=== PATIENT | male | born 1950 | race Caucasian/White ===

== ENCOUNTER → 2018-07-11 12:08 | Outpatient (CLI) | payer MEDICARE, BC, SELFPAY ==
[2018-07-11 13:03] LABS: Add Manual Diff / Slide Review NO; Basophils Percent Auto 1.2 % (0-2); Eosinophils Percent Auto 4.4 % (2-4); Hematocrit 44.4 % (41-53); Hemoglobin 15.4 g/dL (13.5-17.5); Lymphocytes Percent Auto 39.9 % (25-40); Mean Corpuscular HGB Conc 34.6 % (30-36); Mean Corpuscular Hemoglobin 31.8 PG (26-34); Mean Corpuscular Volume 91.8 fL (80-100); Neutrophils Absolute Auto 2100 /uL (3000-5900); Neutrophils Percent Auto 44.5 % (50-75); Platelet Count 107 X10^3/uL (150-400); Red Blood Cell Count 4.84 X10^6/uL (4.5-5.9); Red Cell Distribution Width 14.2 % (11.6-14.8); White Blood Cell Count 4.7 X10^3/uL (4.5-11.0)
[2018-07-11 13:42] LABS: Cholesterol 236 mg/dL (140-199); HDL Cholesterol 67 mg/dL (40-60); LDL Cholesterol Calculated 155 mg/dL (<100); Triglycerides 70 mg/dL (35-150)
[2018-07-11 14:47] LABS: TSH w/ Reflex to FT4 1.73 uIU/mL (0.47-4.68)
== END ==
PROVIDERS: Family Provider Family Medicine; PCP Family Medicine; Visit Provider Family Medicine
DX: E78.00 Pure hypercholesterolemia, unspecified (principal); I10 Essential (primary) hypertension
CPT/HCPCS: 36415; 80061; 84443; 85025

== ENCOUNTER → 2018-08-09 12:39 | Outpatient (CLI) | payer MEDICARE, BC, SELFPAY ==
--- NOTE | 2018-08-09 12:42 | DI.US.S_ITS ---
PROCEDURE: US RENAL COMPLETE INDICATIONS: FLANK PAIN TECHNIQUE: Real-time scanning was performed of the kidneys and bladder, with image documentation. COMPARISON: None. FINDINGS: Kidneys: Kidneys are normal in size. Right kidney measures 15.4 cm long; left kidney measures 13.6 cm long. Right renal cortical thickness is 1.9 cm; left renal cortical thickness is 1.5 cm. Renal cortical echotexture is normal. No hydronephrosis or nephrolithiasis. No suspicious solid mass lesions. Bladder: Pre-void bladder volume is 73 mL. Post-void residual is 20 mL. Pre-void images demonstrate no intraluminal masses or stones. On pre-void images, neither ureteral jets are noted with color Doppler interrogation. (Of note, ureteral jets may not be detectable in up to 25% of cases due to insufficient differences in specific gravity between ureteral and bladder urine). Miscellaneous: No free pelvic fluid. IMPRESSION: Normal appearance of the kidneys and no source for bilateral flank pain identified. Dictated by: Mauro Jules [facility] Interpreted: Coretta Barker MD on 08/09/2018 at 13:31 Approved by: Coretta Barker M.D. on 08/09/2018 at 14:46
== END ==
PROVIDERS: PCP Family Medicine; Visit Provider Family Medicine
DX: R10.9 Unspecified abdominal pain (principal)
CPT/HCPCS: 76770

== ENCOUNTER → 2019-07-08 11:10 | Outpatient (CLI) | payer MEDICARE, BC, SELFPAY ==
[2019-07-08 11:30] LABS: Add Manual Diff / Slide Review NO; Basophils Absolute Auto 0 /uL (0-100); Eosinophils Absolute Auto 200 /uL (0-450); Eosinophils Percent Auto 3.1 % (2-4); Hematocrit 47.6 % (41-53); Hemoglobin 16.6 g/dL (13.5-17.5); Lymphocytes Absolute Auto 1700 /uL (1100-4500); Lymphocytes Percent Auto 33.8 % (25-40); Mean Corpuscular Hemoglobin 31.9 PG (26-34); Mean Corpuscular Volume 91.2 fL (80-100); Monocytes Absolute Auto 500 /uL (0-900); Neutrophils Absolute Auto 2600 /uL (1500-7000); Neutrophils Percent Auto 52.1 % (50-75); Platelet Count 132 X10^3/uL (150-400); Red Blood Cell Count 5.22 X10^6/uL (4.5-5.9); Red Cell Distribution Width 13.8 % (11.6-14.8); White Blood Cell Count 4.9 X10^3/uL (4.5-11.0)
[2019-07-08 11:48] LABS: Alanine Aminotransferase 21 IU/L (<50); Albumin 4.5 g/dL (3.5-5.0); Albumin Globulin Ratio 1.6 (1.0-2.8); Alkaline Phosphatase 60 U/L (38-126); Aspartate Aminotransferase 26 IU/L (17-59); Bilirubin Total 1.4 mg/dL (0.2-1.3); Blood Urea Nitrogen 23 mg/dL (9-20); Calcium 9.4 mg/dL (8.4-10.2); Carbon Dioxide 27 mmol/L (22-32); Chloride 103 mmol/L (98-107); Cholesterol 217 mg/dL (140-199); Estimated Glomerular Filt Rate > 60.0 mL/min (>60); Globulin 2.8 g/dL (1.7-4.1); Glucose 113 mg/dL (80-110); HDL Cholesterol 48 mg/dL (40-60); HEMOLYSIS < 15 (0-50); LDL Cholesterol Calculated 155 mg/dL (<100); Potassium 4.3 mmol/L (3.4-5.1); Sodium 140 mmol/L (137-145); Total Protein 7.3 g/dL (6.3-8.2); Triglycerides 71 mg/dL (35-150)
[2019-07-08 12:18] LABS: Prostate Specific Antigen Scrn 0.701 ng/mL (0.1-4.0); TSH w/ Reflex to FT4 1.95 uIU/mL (0.47-4.68)
== END ==
PROVIDERS: PCP Family Medicine; Visit Provider Family Medicine
DX: Z12.5 Encounter for screening for malignant neoplasm of prostate (principal); E78.00 Pure hypercholesterolemia, unspecified; I10 Essential (primary) hypertension
CPT/HCPCS: 36415; 80053; 80061; 84443; 85025; G0103

== ENCOUNTER 2020-03-11 12:17 | Emergency (ER) | payer MEDICARE, BC, SELFPAY ==
[2020-03-11] VITALS (7 sets, daily range): BP systolic 136–165; BP diastolic 86–103; PULSE 82–97; RESP 17–25; TEMP 36.8; O2SAT 98–99; BMI 37.5
--- NOTE | 2020-03-11 12:29 | DI.RAD.S_ITS ---
PROCEDURE: XR CHEST 1V INDICATIONS: chest pain TECHNIQUE: One view of the chest was acquired. COMPARISON: [facility], , CHEST 2 VIEW, 02/10/2016, 16:19. FINDINGS: Surgical changes and devices: None. Lungs and pleura: The pulmonary vascular markings are slightly increased. No focal consolidation, effusion, or pneumothorax is evident. Mediastinum: Mediastinal contours appear normal. Heart size is normal. There is aortic atherosclerosis. Bones and chest wall: No suspicious bony lesions. Overlying soft tissues appear unremarkable. IMPRESSION: Possible mild vascular congestion. No definite pneumonia. Dictated by: Miguel Alfaro M.D. on 03/11/2020 at 12:01 Approved by: Miguel Alfaro M.D. on 03/11/2020 at 12:01
--- NOTE | 2020-03-11 12:48 | PC.NURSE ---
Patient states he was in [place] yesterday and was feeling some seasonal allergies and fatigue. 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 Which resolved. Today continues to feel very fatigued and ongoing pressure in his chest.
--- NOTE | 2020-03-11 12:49 | ED.CHESTPAIN ---
HPI - Chest Pain General Chief Complaint: Chest Pain Stated Complaint: Tightness In Chest, Fatigue Time Seen by Provider: 03/11/20 12:39 Source: patient Mode of arrival: Ambulatory Limitations: no limitations History of Present Illness HPI narrative: Patient is a 70-year-old male who presents with chest discomfort ongoing since yesterday morning. 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 He says he is having some mild shortness of breath but not any worse with exertion he denies any orthopnea he does have lower extremity edema but he says it is not any worse than normal. He is noted to be in atrial fibrillation. MD complaint: chest pain Onset (ago): day(s) (1) Duration: constant Pain location: substernal Pain radiation: none Relieving factors: nothing Exacerbating factors: nothing Related Data Previous Rx's Medication Instructions Recorded hydrochlorothiazide 25 mg tablet 25 mg PO QDAY #90 tab 07/27/18 albuterol sulfate 90 mcg/actuation 1 puff INHALATION Q4-6H PRN #8.5 11/16/18 aerosol inhaler gram zolpidem 5 mg tablet 5 mg PO HS PRN #20 tab 11/16/18 lisinopril 40 mg tablet 40 mg PO QDAY #90 tab 07/10/19 pantoprazole 40 mg tablet,delayed 40 mg PO QDAY #90 ect 08/10/19 release amlodipine 10 mg tablet 10 mg PO DAILY #90 tab 09/19/19 cyclobenzaprine 5 mg tablet 5 mg PO TID PRN #60 tab 09/26/19 dexamethasone 4 mg tablet 4 mg PO TID #6 tab 09/26/19 tadalafil 20 mg tablet 20 mg PO Q3DAYS #24 tab 11/03/19 celecoxib 200 mg capsule 200 mg PO BID #60 cap 12/14/19 apixaban [Eliquis] 5 mg PO BID #60 tab 03/11/20 metoprolol succinate 25 mg PO DAILY #30 each 03/11/20 Allergies Allergy/AdvReac Type Severity Reaction Status Date / Time No Known Drug Allergies Allergy Verified 03/11/20 12:26 Review of Systems Review of Systems Narrative: GENERAL: Denies chills, fatigue, malaise, fever, sweats, travel HEENT: Denies sinus pain, ear pain, sore throat, difficulty swallowing, neck pain RESPIRATORY: Denies dyspnea, cough, wheezing, hemoptysis, sputum. CARDIOVASCULAR: See HPI GASTROINTESTINAL: Denies nausea, vomiting, abdominal pain, diarrhea, constipation, melena. : Denies dysuria, frequency, incontinence, hematuria, urinary retention, flank pain. MUSCULOSKELETAL: Denies weakness, joint pain, or bony pain SKIN: No rash, no erythema, no pruritus NEUROLOGIC: Denies weakness, dizziness, headache, numbness, change in speech, confusion PSYCHIATRIC: No concerning psychosocial issues. 12 point review of systems is negative except for those stated above and HPI Patient History Medical History Ankle pain (Chronic ~2012) Asthma (Chronic) Ward's syndrome (Chronic ~1999) Chicken pox (Resolved) GERD (gastroesophageal reflux disease) (Chronic) Gout (Chronic ~2013) Hypertension (Chronic) Measles (Resolved) Mumps (Resolved) Skin cancer (Resolved ~2001) Sleep apnea (Chronic ~2007) Urinary frequency (Chronic) Vision disorder (Chronic) Surgical History Acromial fracture (Resolved) Anesthesia (Resolved) History of lumbosacral spine surgery (Resolved ~2012) History of spinal fusion (~05/2013) History of throat surgery (Resolved ~1991) History of tonsillectomy (~1953) History of vasectomy (~1983) Shoulder pain (Resolved ~2005) Family History Brother Age: 68 Back pain Brother Age: 65 Back pain Sister Age: 77 Obese Sister Age: 76 Overweight Social History marital status: Smoking Status: Former smoker alcohol intake: current (1-2 A DAY ) substance use type: does not use Smoking Status: Former smoker alcohol intake frequency: 3 or more drinks per day Substance Use Type: does not use Exam Initial Vital Signs Initial Vital Signs: Vital Signs Temperature 98.3 F 03/11/20 12:20 Pulse Rate 93 H 03/11/20 12:20 Respiratory Rate 22 03/11/20 12:20 Blood Pressure 165/103 H 03/11/20 12:20 Pulse Oximetry 99 03/11/20 12:20 GENERAL: Alert well-appearing male HEENT: Head atraumatic,EOMI, pupils reactive, face symmetric CARDIOVASCULAR: Irregularly irregular RESPIRATORY: Breath sounds equal bilaterally, no wheezes rales or rhonchi. ABDOMEN: Soft, nontender. Normoactive bowel sounds all 4 quadrants. No guarding or rebound. EXTREMITIES: Normal range of motion, no clubbin. +1 pitting edema. Neurovascularly intact NEUROLOGICAL: Alert and oriented x4.Normal gait and speech. SKIN: Warm, dry, no laceration, no petechiae, no rashes or lesions. Scores CHADS-VASc Congestive heart failure: no Hypertension: yes Age 75 years or older: no Diabetes mellitus: no Stroke, TIA, or TE: no Vascular disease: no Age 65 to 74 years: yes Sex category (female): Male CHADS-VASc Score: 2 Course Orders Ordered: ED Orders 03/11/20 12:29 XR chest 1V Stat EKG-12 Lead Stat 03/11/20 12:35 Complete Blood Count AUTO DIFF Stat Comprehensive Metabolic Panel Stat Lipase Stat Partial Thromboplastin Time Stat Prothrombin Time INR Stat Troponin & CK Cardiac Panel Stat Vital Signs Vital signs: Vital Signs - 8 hr 03/11/20 12:20 03/11/20 12:23 03/11/20 12:25 Temperature 98.3 F Pulse Rate 93 H 95 H 97 H Respiratory Rate 22 22 23 Blood Pressure 165/103 H 165/103 H Pulse Oximetry 99 98 99 03/11/20 12:30 03/11/20 13:00 03/11/20 13:30 Temperature Pulse Rate 94 H 91 H 90 Respiratory Rate 25 H 21 Blood Pressure 157/95 H 143/86 H 136/99 H Pulse Oximetry 99 98 99 03/11/20 14:00 Temperature Pulse Rate 82 Respiratory Rate 17 Blood Pressure 142/91 H Pulse Oximetry 98 MDM - Chest Pain Lab Data Attestation: I reviewed the patient's lab results. Result diagrams: 03/11/20 12:35 03/11/20 12:35 Labs: Lab Results 03/11/20 03/11/20 03/11/20 Range/Units 12:35 12:35 12:35 WBC 6.1 (4.5-11.0) X10^3/uL RBC 4.80 (4.5-5.9) X10^6/uL Hgb 15.3 (13.5-17.5) g/dL Hct 44.0 (41-53) % MCV 91.7 (80-100) fL MCH 31.9 (26-34) PG MCHC 34.7 (30-36) % RDW 14.4 (11.6-14.8) % Plt Count 124 L (150-400) X10^3/uL Neut % (Auto) 48.9 L (50-75) % Lymph % (Auto) 36.4 (25-40) % Collin % (Auto) 8.6 (3-14) % Eos % (Auto) 4.4 H (2-4) % Baso % (Auto) 1.7 (0-2) % Neut # (Auto) 3000 (6030-0430) /uL Lymph # (Auto) 2200 (8710-4196) /uL Collin # (Auto) 500 (0-900) /uL Eos # (Auto) 300 (0-450) /uL Baso # (Auto) 100 (0-100) /uL PT 11.8 (10.1-12.7) SECONDS INR 1.0 (0.9-1.3) APTT 31 (26.4-36.2) SECONDS Sodium 139 (137-145) mmol/L Potassium 3.7 (3.4-5.1) mmol/L Chloride 108 H (98-107) mmol/L Carbon Dioxide 24 (22-32) mmol/L BUN 18 (9-20) mg/dL Creatinine 0.83 (0.66-1.25) mg/dL Estimated GFR > 60.0 (>60) mL/min BUN/Creatinine Ratio 21.7 (6-22) Glucose 114 H (80-110) mg/dL Calcium 8.8 (8.4-10.2) mg/dL Total Bilirubin 1.2 (0.2-1.3) mg/dL AST 38 (17-59) IU/L ALT 31 (<50) IU/L Alkaline Phosphatase 62 (38-126) U/L Total Creatine Kinase 204 H (55-170) U/L CK-MB (CK-2) 5.29 H (<2.37) ng/mL CK-MB (CK-2) Rel Index 2.6 (1.5-5.0) % Troponin I < 0.012 (0.01-0.034) ng/mL Total Protein 6.5 (6.3-8.2) g/dL Albumin 4.0 (3.5-5.0) g/dL Globulin 2.5 (1.7-4.1) g/dL Albumin/Globulin Ratio 1.6 (1.0-2.8) Lipase 78 (23-300) U/L Imaging Data Chest x-ray: Radiologist's Impression: PROCEDURE: XR CHEST 1V INDICATIONS: chest pain TECHNIQUE: One view of the chest was acquired. COMPARISON: [facility], CHEST 2 VIEW, 02/10/2016, 16:19. FINDINGS: Surgical changes and devices: None. Lungs and pleura: The pulmonary vascular markings are slightly increased. No focal consolidation, effusion, or pneumothorax is evident. Mediastinum: Mediastinal contours appear normal. Heart size is normal. There is aortic atherosclerosis. Bones and chest wall: No suspicious bony lesions. Overlying soft tissues appear unremarkable. IMPRESSION: Possible mild vascular congestion. No definite pneumonia. Dictated by: Miguel Alfaro M.D. on 03/11/2020 at 12:01 Approved by: Miguel Alfaro M.D. on 03/11/2020 at 12:01 ECG Data Attestation: I personally reviewed and interpreted this ECG as follows: Prior ECG tracings: available for review Interpretation: Atrial fibrillation rate [address] changes priors to compare MDM Narrative Medical decision making narrative: The patient is within 48 hours and is in the window of cardioversion however I discussed with patient and his primary care physician Dr. man regards to cardioversion versus conservative treatment at this time patient opts for conservative treatment. Dr. Man request metoprolol and Eliquis. He is currently rate controlled I have discussed risks with any anticoagulation and given him options for anticoagulation he at this time he agrees to Eliquis. I discussed all findings with the patient, Education has been performed regarding treatment plan, diagnosis, warning signs and symptoms and all concerns have been addressed. Verbally agree with and understood all of the above. Discharge Plan Departure Patient Disposition: Home Clinical Impression: Atrial fibrillation Qualifiers: Atrial fibrillation type: unspecified Qualified Code(s): I48.91 - Unspecified atrial fibrillation Discharge Date/Time: 03/11/20 14:37 Instructions: DI for Atrial Fibrillation Activity Restrictions/Additional Instructions: *You have been diagnosed with atrial fibrillation *What to do: You will need more studies and test done with Dr. Luis Ford does put you at risk for bleeding if you should fall and hit your head or experience bloody stool you need to come to ED for evaluation immediately. You will bleed easier, you will need to apply pressure for longer to cuts and nose bleeds. You *Continue to take medications as directed--> SENT TO [facility] Metoprolol 25 mg twice a day Eliquis 5 mg twice a day *Follow up with your primary care provider in 2-3 days *Return to ER if you should have increased chest pain heart palpitations shortness of breath or any new, worsening or concerning symptoms Prescriptions: New metoprolol succinate 25 mg capsule,sprinkle,ER 24hr 25 mg PO DAILY Qty: 30 RF: 0 Eliquis 5 mg tablet 5 mg PO BID Qty: 60 RF: 0 No Action dexamethasone 4 mg tablet 4 mg PO TID Qty: 6 RF: 0 cyclobenzaprine 5 mg tablet 5 mg PO TID PRN (Reason: muscle spasm) Qty: 60 RF: 0 zolpidem 5 mg tablet 5 mg PO HS PRN (Reason: insomnia) Qty: 20 RF: 0 albuterol sulfate 90 mcg/actuation HFA aerosol inhaler 1 puff INHALATION Q4-6H PRN (Reason: shortness of breath or wheezing) Qty: 8.5 RF: 1 lisinopril 40 mg tablet 40 mg PO QDAY Qty: 90 RF: 3 pantoprazole [Protonix] 40 mg tablet,delayed release (DR/EC) 40 mg PO QDAY Qty: 90 RF: 3 amlodipine 10 mg tablet 10 mg PO DAILY Qty: 90 RF: 3 tadalafil [Cialis] 20 mg tablet 20 mg PO Q3DAYS Qty: 24 RF: 6 celecoxib [Celebrex] 200 mg capsule 200 mg PO BID Qty: 60 RF: 0 hydrochlorothiazide 25 mg tablet 25 mg PO QDAY Qty: 90 RF: 3 Referrals: Jurgen Man MD [Primary Care Provider] -
[2020-03-11 12:50] LABS: Add Manual Diff / Slide Review NO; Basophils Absolute Auto 100 /uL (0-100); Basophils Percent Auto 1.7 % (0-2); Eosinophils Absolute Auto 300 /uL (0-450); Eosinophils Percent Auto 4.4 % (2-4); Hemoglobin 15.3 g/dL (13.5-17.5); Lymphocytes Absolute Auto 2200 /uL (1100-4500); Lymphocytes Percent Auto 36.4 % (25-40); Mean Corpuscular HGB Conc 34.7 % (30-36); Mean Corpuscular Hemoglobin 31.9 PG (26-34); Mean Corpuscular Volume 91.7 fL (80-100); Monocytes Absolute Auto 500 /uL (0-900); Monocytes Percent Auto 8.6 % (3-14); Neutrophils Absolute Auto 3000 /uL (1500-7000); Neutrophils Percent Auto 48.9 % (50-75); Platelet Count 124 X10^3/uL (150-400); Red Cell Distribution Width 14.4 % (11.6-14.8); White Blood Cell Count 6.1 X10^3/uL (4.5-11.0)
[2020-03-11 12:51] LABS: Prothrombin Time 11.8 SECONDS (10.1-12.7)
[2020-03-11 12:53] LABS: PTT Partial Thromboplastin Tim 31 SECONDS (26.4-36.2)
[2020-03-11 13:04] LABS: Alanine Aminotransferase 31 IU/L (<50); Albumin Globulin Ratio 1.6 (1.0-2.8); Alkaline Phosphatase 62 U/L (38-126); Aspartate Aminotransferase 38 IU/L (17-59); BUN Creatinine Ratio 21.7 (6-22); Bilirubin Total 1.2 mg/dL (0.2-1.3); Blood Urea Nitrogen 18 mg/dL (9-20); Calcium 8.8 mg/dL (8.4-10.2); Carbon Dioxide 24 mmol/L (22-32); Chloride 108 mmol/L (98-107); Creatine Kinase 204 U/L (55-170); Estimated Glomerular Filt Rate > 60.0 mL/min (>60); Globulin 2.5 g/dL (1.7-4.1); Glucose 114 mg/dL (80-110); Lipase 78 U/L (23-300); Potassium 3.7 mmol/L (3.4-5.1); Sodium 139 mmol/L (137-145); Total Protein 6.5 g/dL (6.3-8.2)
[2020-03-11 13:16] LABS: Troponin I < 0.012 ng/mL (0.01-0.034)
[2020-03-11 13:20] LABS: CKMB % Relative Index 2.6 % (1.5-5.0); Creatine Kinase MB 5.29 ng/mL (<2.37); HEMOLYSIS < 15 (0-50)
== END 2020-03-11 14:37 | disposition home or self-care (01) ==
PROVIDERS: Emergency Provider Emergency Medicine; PCP Family Medicine
DX: I48.91 Unspecified atrial fibrillation (principal)
CPT/HCPCS: 36415; 71045; 80053; 82550; 82553; 83690; 84484; 85025; 85610; 85730; 93005; 93010; 99284

== ENCOUNTER → 2020-03-14 09:57 | Outpatient (CLI) | payer MEDICARE, BC, SELFPAY ==
[2020-03-14 11:49] LABS: NT-proBNP (BNP-Adult 18+) 925 pg/mL (<125)
== END ==
PROVIDERS: PCP Family Medicine; Referring Provider Family Medicine; Visit Provider Family Medicine
DX: I48.91 Unspecified atrial fibrillation (principal)
CPT/HCPCS: 36415; 83735; 83880; 84443

== ENCOUNTER → 2020-03-17 11:21 | Outpatient (CLI) | payer MEDICARE, BC, SELFPAY ==
[2020-03-18 13:58] LABS: COVID19 Sendout Not Detected (Not Detect)
== END ==
PROVIDERS: PCP Family Medicine; Visit Provider Physician Assistant
DX: Z01.812 Encounter for preprocedural laboratory examination (principal)
CPT/HCPCS: 87635

== ENCOUNTER → 2020-03-20 09:51 | Outpatient (CLI) | payer MEDICARE, BC, SELFPAY ==
--- NOTE | 2020-03-21 14:46 | P.PCN_ITS ---
Cardiac Stress Test Report Referral & Results Date Patient Seen: 03/21/20 Time Patient Seen: 14:30 Requesting provider: Jurgen Smith Indication: New a-fib Rest ECG: Normal sinus rhythm. Patient is not in atrial fibrillation. Procedure Note: Today following both written and verbal informed consent the patient was exercised according to a standard Chago protocol patient went for a total of 6 minutes achieving a maximum heart rate of 130 maximum systolic blood pressure of 210. This is approximately 7 METs. Exercise was terminated at this point because of fatigue. Patient was also given Cardiolite through a previously started Hep-Lock IV by the nuclear medicine technologist approximately 1 minute prior to the cessation of exercise. Normal hemodynamic response to exercise. No signs or symptoms of angina. No ST deviations. Sinus rhythm at baseline. Frequent PVCs at peak exercise. Impaired exercise capacity (BRIGETTE +10% on active scale). Impression: Low probability for ischemia. Will await perfusion imaging. Please note: Actual ECG tracings can be found in the PACS system.
--- NOTE | 2020-03-21 21:06 | DI.NM.S_ITS ---
DATE OF SERVICE: 03/20/2020 PROCEDURE: Exercise perfusion study. INDICATIONS: Atrial fibrillation. RADIOPHARMACEUTICAL: 25.5 millicurie technetium-99m Myoview IV was injected at stress and 25.7 millicurie technetium-99m Myoview IV was injected at rest. CARDIAC STRESS: The patient underwent exercise perfusion study under the supervision of an attending staff. He walked on Chago protocol. The patient walked on Chago protocol for around 6 minutes and 04 seconds, achieved 87 percent of target heart rate, 7 METS of workload and functional aerobic impairment positive 10 percent. He felt fatigued. Baseline blood pressure 142/90. Peak blood pressure 210/118, suggestive of hypertensive blood pressure response. Baseline EKG revealed sinus rhythm with poor R-wave progression. During stress, there were no convincing ischemic changes. There were some PACs as well as isolated PVCs at peak exercise. There was some bigeminy pattern. No ventricular tachycardia. RAW DATA: There is increased subdiaphragmatic activity. The patient's weight is 332 pounds. GATED STUDY: Stress LV ejection fraction 70 percent without any obvious wall motion abnormalities. Resting end-diastolic volume 214 mL, suggestive of dilated left ventricle. TID ratio 1.07, which is within normal limits. Lung/heart ratio 0.49, which is abnormal. MYOCARDIAL PERFUSION: Stress supine, resting supine and stress prone images were compared to each other. Stress supine and resting supine images revealed moderate-size ,mildly decreased perfusion of inferior wall, extending into the inferior apex which got significantly improved during prone images. Prone images remained have minimally decreased perfusion of basal inferior wall. CONCLUSION: 1. No obvious reversible ischemia. 2. Stress supine and resting supine images revealed moderate-size, mildly decreased perfusion of inferior wall and inferior apex, which got significantly improved during prone images. There was minimally decreased perfusion of basal inferior wall on prone images. This is likely due to diaphragmatic tissue attenuation artifact and some persistent tissue attenuation artifact. The patient's weight is 332 pounds. As far as perfusion scan is concerned, this is a low-risk myocardial perfusion scan. However, the lung/heart ratio is abnormal. Consider 2D echo to make sure there is no diastolic dysfunction or valvular pathology. Fideila Garner Rj doc#: [id number]/job#: [id number] dd: 03/21/2020 17:21:00 dt: 03/21/2020 20:40:00 DICTATING MD/COPIES TO: Noé Lantigua MD; Celeste Flower M.D. COPIES MNE: JEROME;
== END ==
PROVIDERS: PCP Family Medicine; Referring Provider Family Medicine; Visit Provider Family Medicine
DX: I48.91 Unspecified atrial fibrillation (principal)
CPT/HCPCS: 78452; 93016; 93017; 93018; A9502

== ENCOUNTER → 2020-05-07 09:25 | Outpatient (CLI) | payer MEDICARE, BC, SELFPAY ==
[2020-05-07 11:27] LABS: Hemoglobin A1C% w Est Avg Glu 5.9 % (4.0-6.0)
== END ==
PROVIDERS: PCP Family Medicine; Referring Provider Family Medicine; Visit Provider Family Medicine
DX: E78.00 Pure hypercholesterolemia, unspecified (principal); I10 Essential (primary) hypertension; Z13.1 Encounter for screening for diabetes mellitus
CPT/HCPCS: 36415; 83036

== ENCOUNTER → 2020-05-15 14:48 | Outpatient (CLI) | payer MEDICARE, BC, SELFPAY ==
[2020-05-15 17:32] LABS: Urine N gonorrhoeae NOT DETECTED
[2020-05-15 18:27] LABS: Urine Chlamydia NOT DETECTED
[2020-05-16 09:31] LABS: HBsAg Screen Negative (Negative); Hepatitis A Antibody IgM Negative (Negative); Hepatitis B Core Antibody IgM Negative (Negative); Hepatitis C Antibody <0.1 s/co ratio (0.0-0.9)
[2020-05-16 16:42] LABS: HIV 1 & 2 Ab/Ag 4th Gen Combo NEGATIVE (NEGATIVE)
== END ==
PROVIDERS: PCP Family Medicine; Referring Provider Family Medicine; Visit Provider Family Medicine
DX: Z11.3 Encounter for screening for infections with a predominantly sexual mode of transmission (principal)
CPT/HCPCS: 36415; 80074; 87389; 87491; 87591

== ENCOUNTER → 2020-09-11 09:41 | Outpatient (CLI) | payer MEDICARE, BC, SELFPAY ==
[2020-09-11 12:02] LABS: COVID19 -Nasal RAPID Negative (Negative)
== END ==
PROVIDERS: PCP Family Medicine; Visit Provider Family Medicine
DX: R10.9 Unspecified abdominal pain (principal); R11.0 Nausea; Z20.822 Contact with and (suspected) exposure to COVID-19
CPT/HCPCS: 87635

== ENCOUNTER → 2020-09-26 09:02 | Outpatient (CLI) | payer MEDICARE, BC, SELFPAY ==
[2020-09-26] MEDS: COVID-19 VACC #1, MRNA(MOD) 100 MCG/0.5 ML VIAL IM (09:06)
== END ==
PROVIDERS: PCP Family Medicine; Visit Provider Internal Medicine
DX: Z23 Encounter for immunization (principal)
CPT/HCPCS: 0011A; 91301

== ENCOUNTER → 2020-10-23 08:17 | Outpatient (CLI) | payer MEDICARE, BC, SELFPAY ==
[2020-10-23] MEDS: COVID-19 VACC #2, MRNA(MOD) 100 MCG/0.5 ML VIAL IM (08:23)
== END ==
PROVIDERS: PCP Family Medicine; Visit Provider Internal Medicine
DX: Z23 Encounter for immunization (principal)
CPT/HCPCS: 0012A; 91301

== ENCOUNTER 2021-01-06 07:28 | Emergency (ER) | payer MEDICARE, BC, SELFPAY ==
[2021-01-06 07:38] VITALS: BP 130/68; PULSE 70; RESP 14; TEMP 36.6; O2SAT 96
--- NOTE | 2021-01-06 07:44 | ED.BACK ---
HPI - Back Pain/Injury General Chief Complaint: Back Pain/Injury Stated Complaint: pinched nerve in back Time Seen by Provider: 01/06/21 07:30 Source: patient Limitations: no limitations History of Present Illness HPI Narrative: 70-year-old male former smoker with history of prior back pain and subsequent surgery, hypertension, AFib on Eliquis presents with severe lower back pain and radiation down both legs to the back of his knees. He states it feels electrical, sharp and stabbing and not unlike prior back issues. He states it started on Wednesday and without any obvious or significant injury. He denies any numbness, tingling or weakness. He has no footdrop. He denies any difficulty with control of bowel or bladder. He has had no fever or chills and denies any history of IV drug abuse. His pain is worse with motion and improves with rest. MD Complaint: back pain Onset (ago): day(s) Duration: constant Similar Symptoms Previously: Yes Location: lumbar spine Severity: severe Quality: burning and sharp Radiation: left leg and right leg Relieving factors: none Exacerbating factors: walking Associated symptoms: denies other symptoms Related Data Previous Rx's Medication Instructions Recorded albuterol sulfate 90 mcg/actuation 1 puff INHALATION Q4-6H PRN #8.5 11/16/18 aerosol inhaler gram zolpidem 5 mg tablet 5 mg PO HS PRN #20 tab 11/16/18 amlodipine 10 mg tablet 10 mg PO DAILY #90 tab 09/19/19 tadalafil 20 mg tablet 20 mg PO Q3DAYS #24 tab 11/03/19 metoprolol succinate 25 mg PO DAILY #30 each 03/11/20 lisinopril 40 mg tablet 40 mg PO QDAY #90 tab 07/08/20 pantoprazole 40 mg tablet,delayed 40 mg PO QDAY #90 ect 10/18/20 release apixaban 5 mg tablet 5 mg PO BID #20 tab 12/18/20 cyclobenzaprine 10 mg PO TID PRN #14 tab 01/06/21 gabapentin 300 mg PO BEDTIME #14 cap 01/06/21 methylprednisolone [Medrol (Elian)] See Rx Instructions .ROUTE 01/06/21 .COMPLEX #21 ea oxycodone 5 mg PO Q4-6H PRN #10 tab 01/06/21 Allergies Allergy/AdvReac Type Severity Reaction Status Date / Time No Known Drug Allergies Allergy Verified 07/06/20 14:57 Review of Systems Constitutional Constitutional: Denies chills, Denies fatigue, Denies fever(s), Denies frequent falls, Denies lethargy and Denies weakness Eyes Eyes: Denies change in vision, Denies eye discharge, Denies irritation and Denies loss of vision ENT Ears, Nose, Mouth, and Throat: Denies change in voice, Denies dizziness, Denies neck pain, Denies sore throat and Denies throat swelling Cardiovascular Cardiovascular: Denies chest pain, Denies irregular heart rhythm, Denies lightheadedness, Denies palpitations, Denies dyspnea, Denies dyspnea on exertion and Denies orthopnea Respiratory Respiratory: Denies cough, Denies dyspnea, Denies dyspnea on exertion and Denies wheezing Gastrointestinal Gastrointestinal: Denies abdominal pain, Denies change in bowel habits, Denies diarrhea, Denies nausea and Denies vomiting Musculoskeletal Musculoskeletal: Reports back pain, Denies neck pain and Denies numbness Integumentary/Breasts Skin/Breast: Denies pruritus, Denies erythema, Denies rash and Denies wounds Neurologic Neurologic: Denies behavioral changes, Denies confusion, Denies dizziness, Denies frequent falls, Denies loss of vision, Denies numbness and Denies weakness Psychiatric Psychiatric: Denies anxiety, Denies behavioral changes, Denies confusion, Denies depression, Denies homicidal ideation and Denies suicidal ideation Endocrine Endocrine: Denies fatigue, Denies flushing and Denies palpitations Hematologic/Lymphatic Hematologic/Lymphatic: Denies easy bruising Allergic/Immunologic Allergic/Immunologic: Denies urticaria, Denies throat swelling and Denies wheezing Patient History Medical History (Updated 01/06/21 @ 09:00 by Kumar Payne DO) Ankle pain (~2012) Asthma Ward's syndrome (~1999) Chicken pox GERD (gastroesophageal reflux disease) Gout (~2013) Hypertension Measles Mumps Skin cancer (~2001) Sleep apnea (~2007) Urinary frequency Vision disorder Surgical History Acromial fracture Anesthesia History of lumbosacral spine surgery (~2012) History of spinal fusion (~05/2013) History of throat surgery (~1991) History of tonsillectomy (~1953) History of vasectomy (~1983) Shoulder pain (~2005) Family History Brother Age: 69 Back pain Brother Age: 66 Back pain Sister Age: 78 Obese Sister Age: 77 Overweight Social History marital status: Smoking Status: Former smoker alcohol intake: current (1-2 A DAY ) substance use type: does not use Smoking Status: Former smoker alcohol intake frequency: 3 or more drinks per day Substance Use Type: does not use Exam Narrative Exam Narrative: GENERAL: [70] year old patient appears stated age. Well-nourished, well-developed patient, in mild distress. HEAD: Atraumatic. Normocephalic. EYES: Pupils equal round and reactive. Extraocular motions intact. No scleral icterus. No injection or drainage. ENT: Nose without bleeding, purulent drainage. Throat without erythema, tonsillar hypertrophy or exudate. Airway patent. NECK: Trachea midline. Non tender CARDIOVASCULAR: Regular rate and rhythm without murmurs, gallops, or rubs. RESPIRATORY: Clear to auscultation. Breath sounds equal bilaterally. No wheezes, rales, or rhonchi. GASTROINTESTINAL: Abdomen soft, non-tender, nondistended. EXTREMITIES: No edema or joint tenderness. BACK: rounding machine tender but free of any obvious external abnormalities. Patient exam notes decreased range of motion and muscle spasm, but no CVA tenderness, or vertebral point tenderness. There are no symptoms of cauda equina such as saddle anesthesia, and decreased reflexes, decreased sensation or strength. NEURO: AOx3. SKIN: No rash or erythema of visible areas Initial Vital Signs Initial Vital Signs: Vital Signs Temperature 97.8 F 01/06/21 07:38 Pulse Rate 70 01/06/21 07:38 Respiratory Rate 14 01/06/21 07:38 Blood Pressure 130/68 01/06/21 07:38 Pulse Oximetry 96 01/06/21 07:38 Course Orders Ordered: ED Orders 01/06/21 07:53 Basic Metabolic Panel Stat Complete Blood Count AUTO DIFF Stat Prothrombin Time INR Stat 01/06/21 08:27 CT lumbar spine w con Stat Discontinued Medications Gabapentin (Gabapentin 300 Mg Capsule) 300 mg PO NOW ONE Stop: 01/06/21 07:44 Last Admin: 01/06/21 08:04 Dose: 300 mg Documented by: AUGUSTINE Ketorolac Tromethamine (Ketorolac 30 Mg/Ml Vial) 30 mg IM NOW ONE Stop: 01/06/21 07:44 Last Admin: 01/06/21 09:03 Dose: Not Given Documented by: REENA Ketorolac Tromethamine (Ketorolac 30 Mg/Ml Vial) 15 mg IV NOW ONE Stop: 01/06/21 07:48 Last Admin: 01/06/21 08:04 Dose: 15 mg Documented by: AUGUSTINE Methylprednisolone (Methylprednisolone 125 Mg/2 Ml Vial) 125 mg IV NOW ONE Stop: 01/06/21 07:48 Last Admin: 01/06/21 08:04 Dose: 125 mg Documented by: AUGUSTINE Prednisone (Prednisone 20 Mg Tablet) 40 mg PO NOW ONE Stop: 01/06/21 07:44 Last Admin: 01/06/21 09:03 Dose: Not Given Documented by: REENA Vital Signs Vital signs: Vital Signs - 8 hr 01/06/21 07:38 01/06/21 09:21 Temperature 97.8 F Pulse Rate 70 87 Respiratory Rate 14 15 Blood Pressure 130/68 113/58 L Pulse Oximetry 96 98 MDM - Back Pain/Injury Lab Data Result diagrams: 01/06/21 07:53 01/06/21 07:53 Labs: Lab Results 01/06/21 01/06/21 01/06/21 Range/Units 07:53 07:53 07:53 WBC 5.9 (4.5-11.0) X10^3/uL RBC 4.71 (4.5-5.9) X10^6/uL Hgb 15.1 (13.5-17.5) g/dL Hct 43.6 (41-53) % MCV 92.7 (80-100) fL MCH 32.0 (26-34) PG MCHC 34.5 (30-36) % RDW 14.1 (11.6-14.8) % Plt Count 123 L (150-400) X10^3/uL Neut % (Auto) 56.3 (50-75) % Lymph % (Auto) 31.2 (25-40) % [place] % (Auto) 8.0 (3-14) % Eos % (Auto) 3.4 (2-4) % Baso % (Auto) 1.1 (0-2) % Neut # (Auto) 3300 (6578-1142) /uL Lymph # (Auto) 1800 (3265-6280) /uL [place] # (Auto) 500 (0-900) /uL Eos # (Auto) 200 (0-450) /uL Baso # (Auto) 100 (0-100) /uL PT 13.6 H (10.1-12.7) SECONDS INR 1.2 (0.9-1.3) Sodium 141 (137-145) mmol/L Potassium 4.1 (3.4-5.1) mmol/L Chloride 106 (98-107) mmol/L Carbon Dioxide 25 (22-32) mmol/L BUN 26 H (9-20) mg/dL Creatinine 0.95 (0.66-1.25) mg/dL Estimated GFR > 60.0 (>60) mL/min BUN/Creatinine Ratio 27.4 H (6-22) Glucose 120 H (80-110) mg/dL Calcium 9.1 (8.4-10.2) mg/dL Imaging Data LSpine CT w/contrast: Radiologist's Impression: Chart Viewer Diagnostics DATE TYPE STATUS REF RANGE/AUTHOR Hx Today 08:27 Eros Brown 03/21/20 21:06 Noé Lantigua 03/21/20 21:06 Noé Lantigua 03/12/20 14:43 Echocardiogram Complete 03/11/20 12:29 Miguel Alfaro 08/09/18 12:42 Coretta BarkerMamadou arriaga 70, M0 1950 [facility], [facility] ED R04 Back Pain/Injury Search Chart No Data to Display Total Pending Discharge ONSET 06/11/11 06/11/11 06/17/17 06/17/17 Today 07:38 Mamadou Garner 70 M [address] [id number] Scan ReportSigned Patient: Mamadou GarnerMR#: [id number]: 9Acct:[id number]/Sex: 70 / MDate of Service: 01/06/21Loc: EDAccession Number: [id number] Procedure: CT lumbar spine w con Ordering Provider: Kumar Payne D.O. PROCEDURE: CT LUMBAR SPINE W CON INDICATIONS: lumbar pain, on anticoagulation TECHNIQUE: After the administration of intravenous Isovue contrast, 3 mm thick sections acquired through the levels of interest. Sagittal and coronal reformats were then constructed. For radiation dose reduction, the following was used: automated exposure control. COMPARISON: None. FINDINGS: Image quality: Excellent. Bones: No acute fracture identified. Postsurgical changes related to lower lumbar spinal fixation with paraspinal rods and pedicle screws from L4-S1. Lumbosacral transitional vertebra designated S1 Please see montage image for further clarification of the spinal segmental levels used in this report. Multilevel degenerative endplate sclerosis and spurring. Diffuse facet arthropathy. Partial osseous fusion seen at L4-S1 no definite bridging ossification seen at L5 S1. Severe narrowing and vacuum disc phenomenon present at L3-L4. Hypoplastic S1-S2 disc space is unchanged. There is levocurvature. Posterior decompression seen at L4-L5, and L5-S1. No high-grade bony canal stenosis is seen. On the right, moderate bony foraminal narrowing seen at L4-L5 and mild to moderate bony foraminal narrowing seen at L3-L4. On the left, mild bony foraminal narrowing seen at L3-L4, L5-S1. Soft tissues: No definite increased density seen within the spinal canal although better characterization of the intra canal contents could be performed with MRI as necessary (although metallic hardware artifact is a consideration). Grade 1 retrolisthesis of L3 on L4 IMPRESSION: No acute fracture. Postsurgical and chronic spondylitic changes and facet arthropathy as above. Levoscoliosis. Dictated by: Eros Brown M.D. on 01/06/2021 at 8:56 Approved by: Eros Brown M.D. on 01/06/2021 at 9:06 MDM Narrative Medical decision making narrative: 70-year-old with severe back pain in the absence of injury and radicular symptoms while on anticoagulation, CT ordered and no hematoma noted. Patient shows marked improvement with above-stated therapies. Multiple etiologies of back pain considered including; Epidural abscess, cauda equina, mass occupying lesion, and other considered but thought unlikely given history, physical, labs, imaging, response to therapies. Return precautions given and questions answered to his apparent satisfaction. Discharge Plan Departure Patient Disposition: Home Clinical Impression: Bilateral lumbar radiculopathy Instructions: DI for Lumbar Radiculopathy Activity Restrictions/Additional Instructions: *You have been diagnosed with [acute lumbar pain with radiculopathy] *What to do: *Please continue to take your regular medications as directed. [x ] New medication prescriptions sent to your pharmacy: [ [facility] in [place]] [ ] New medication written as a paper prescription [ ] No new medications given *Please follow up with your primary care provider in 2-3 days, call for an appointment. Let them know you were seen in the Emergency Department and that we ask that you be seen in follow up. We will electronically transmit a record of today's note if your PCP is in our system *If you do not have a primary care provider please contact the [facility] Resource line at [phone]. They will ask some questions about your medical history and help get you set up with a doctor in the community. *Return to Emergency Department if you should have any new, worsening or concerning symptoms, such as [fever greater than 101 F, shaking chills, worsening pain, persistent vomiting, leg weakness, loss of control of bowel/bladder or other bothersome symptoms] You have been prescribed narcotic medications. While on these medications you cannot drive or operate heavy machinery. Additionally you cannot sign legal documents or perform any duties such as this. Many people get constipated on narcotic medications so it would be advisable to discuss stool softeners with the pharmacist when you nut picker your prescription. Please understand that we cannot provide further refills of narcotics or controlled substances through the ED and your pain management will need to be through your Primary Care Provider Prescriptions: New cyclobenzaprine 10 mg tablet 10 mg PO TID PRN (Reason: muscle spasm) Qty: 14 RF: 0 gabapentin 300 mg capsule 300 mg PO BEDTIME Qty: 14 RF: 0 methylprednisolone [Medrol (Elian)] 4 mg tablets,dose pack See Rx Instructions .ROUTE .COMPLEX Qty: 21 RF: 0 oxycodone 5 mg tablet 5 mg PO Q4-6H PRN (Reason: pain) Qty: 10 RF: 0 No Action zolpidem 5 mg tablet 5 mg PO HS PRN (Reason: insomnia) Qty: 20 RF: 0 albuterol sulfate 90 mcg/actuation HFA aerosol inhaler 1 puff INHALATION Q4-6H PRN (Reason: shortness of breath or wheezing) Qty: 8.5 RF: 1 amlodipine 10 mg tablet 10 mg PO DAILY Qty: 90 RF: 3 tadalafil [Cialis] 20 mg tablet 20 mg PO Q3DAYS Qty: 24 RF: 6 lisinopril 40 mg tablet 40 mg PO QDAY Qty: 90 RF: 3 pantoprazole [Protonix] 40 mg tablet,delayed release (DR/EC) 40 mg PO QDAY Qty: 90 RF: 3 Eliquis 5 mg tablet 5 mg PO BID Qty: 20 RF: 0 metoprolol succinate 25 mg capsule,sprinkle,ER 24hr 25 mg PO DAILY Qty: 30 RF: 0 Referrals: Jurgen Smith MD [Primary Care Provider] -
[2021-01-06] MEDS: GABAPENTIN 300 MG CAPSULE PO (08:04)
[2021-01-06] MEDS: KETOROLAC 30 MG/ML VIAL 15 MG IV (08:04)
[2021-01-06] MEDS: methylPREDNISolone 125 MG/2 ML VIAL IV (08:04)
[2021-01-06 08:06] LABS: Add Manual Diff / Slide Review NO; Basophils Absolute Auto 100 /uL (0-100); Basophils Percent Auto 1.1 % (0-2); Eosinophils Absolute Auto 200 /uL (0-450); Eosinophils Percent Auto 3.4 % (2-4); Hematocrit 43.6 % (41-53); Hemoglobin 15.1 g/dL (13.5-17.5); Lymphocytes Absolute Auto 1800 /uL (1100-4500); Lymphocytes Percent Auto 31.2 % (25-40); Mean Corpuscular HGB Conc 34.5 % (30-36); Mean Corpuscular Volume 92.7 fL (80-100); Monocytes Absolute Auto 500 /uL (0-900); Neutrophils Absolute Auto 3300 /uL (1500-7000); Neutrophils Percent Auto 56.3 % (50-75); Platelet Count 123 X10^3/uL (150-400); Red Blood Cell Count 4.71 X10^6/uL (4.5-5.9); Red Cell Distribution Width 14.1 % (11.6-14.8); White Blood Cell Count 5.9 X10^3/uL (4.5-11.0)
[2021-01-06 08:13] LABS: INR 1.2 (0.9-1.3); Prothrombin Time 13.6 SECONDS (10.1-12.7)
[2021-01-06 08:18] LABS: BUN Creatinine Ratio 27.4 (6-22); Blood Urea Nitrogen 26 mg/dL (9-20); Calcium 9.1 mg/dL (8.4-10.2); Carbon Dioxide 25 mmol/L (22-32); Chloride 106 mmol/L (98-107); Estimated Glomerular Filt Rate > 60.0 mL/min (>60); Glucose 120 mg/dL (80-110); HEMOLYSIS < 15 (0-50); Potassium 4.1 mmol/L (3.4-5.1); Sodium 141 mmol/L (137-145)
--- NOTE | 2021-01-06 08:27 | DI.CT.S_ITS ---
PROCEDURE: CT LUMBAR SPINE W CON INDICATIONS: lumbar pain, on anticoagulation TECHNIQUE: After the administration of intravenous Isovue contrast, 3 mm thick sections acquired through the levels of interest. Sagittal and coronal reformats were then constructed. For radiation dose reduction, the following was used: automated exposure control. COMPARISON: None. FINDINGS: Image quality: Excellent. Bones: No acute fracture identified. Postsurgical changes related to lower lumbar spinal fixation with paraspinal rods and pedicle screws from L4-S1. Lumbosacral transitional vertebra designated S1 Please see montage image for further clarification of the spinal segmental levels used in this report. Multilevel degenerative endplate sclerosis and spurring. Diffuse facet arthropathy. Partial osseous fusion seen at L4-S1 no definite bridging ossification seen at L5 S1. Severe narrowing and vacuum disc phenomenon present at L3-L4. Hypoplastic S1-S2 disc space is unchanged. There is levocurvature. Posterior decompression seen at L4-L5, and L5-S1. No high-grade bony canal stenosis is seen. On the right, moderate bony foraminal narrowing seen at L4-L5 and mild to moderate bony foraminal narrowing seen at L3-L4. On the left, mild bony foraminal narrowing seen at L3-L4, L5-S1. Soft tissues: No definite increased density seen within the spinal canal although better characterization of the intra canal contents could be performed with MRI as necessary (although metallic hardware artifact is a consideration). Grade 1 retrolisthesis of L3 on L4 IMPRESSION: No acute fracture. Postsurgical and chronic spondylitic changes and facet arthropathy as above. Levoscoliosis. Dictated by: Eros Brown M.D. on 01/06/2021 at 8:56 Approved by: Eros Brown M.D. on 01/06/2021 at 9:06
[2021-01-06 09:21] VITALS: BP 113/58; PULSE 87; RESP 15; O2SAT 98
== END 2021-01-06 09:22 | disposition home or self-care (01) ==
PROVIDERS: Emergency Provider Emergency Medicine; PCP Family Medicine
DX: M54.16 Radiculopathy, lumbar region (principal); Z79.01 Long term (current) use of anticoagulants
CPT/HCPCS: 36415; 72132; 80048; 85025; 85610; 96374; 96375; 99284; J1885; J2930; Q9967

== ENCOUNTER → 2021-01-20 12:00 | Outpatient (CLI) | payer MEDICARE, BC, SELFPAY ==
[2021-01-20 12:48] LABS: COVID19 -Nasal RAPID Negative (Negative)
== END ==
PROVIDERS: PCP Family Medicine; Referring Provider Internal Medicine; Visit Provider Internal Medicine
DX: Z20.822 Contact with and (suspected) exposure to COVID-19 (principal)
CPT/HCPCS: 87635; C9803

== ENCOUNTER → 2021-01-21 13:15 | Outpatient (CLI) | payer MEDICARE, BC, SELFPAY ==
--- NOTE | 2021-01-24 08:17 | PM.PFT.1 ---
Pulmonary Function Test Referral & Results Date Patient Seen: 01/21/21 Requesting provider: Jurgen Smith Results: The spirometry demonstrates an FVC of 4.74 L which is 90% of predicted. The FEV1 was measured at 3.70 L which is 96% of predicted. The FEV1/FVC ratio was 78 which is 106% of predicted. Following the administration of bronchodilator there was no significant change. Lung volumes show an SVC of 5.11 L which is 97% of predicted. The diffusing capacity was measured at 33.29 which is 85% of predicted. The maximum voluntary ventilation was normal Interpretation: This study demonstrates normal pulmonary function
== END ==
PROVIDERS: PCP Family Medicine; Referring Provider Family Medicine; Visit Provider Family Medicine
DX: R06.02 Shortness of breath (principal); Z87.891 Personal history of nicotine dependence
CPT/HCPCS: 94060; 94726; 94729

== ENCOUNTER → 2021-07-28 09:25 | Outpatient (CLI) | payer MEDICARE, BC, SELFPAY ==
[2021-07-28 13:08] LABS: COVID-19 CEPHEID PCR (VTM/NP) Negative (Negative)
== END ==
PROVIDERS: PCP Family Medicine; Visit Provider Physician Assistant
DX: Z20.822 Contact with and (suspected) exposure to COVID-19 (principal)
CPT/HCPCS: C9803; U0003

== ENCOUNTER → 2021-08-06 10:12 | Outpatient (CLI) | payer MEDICARE, BC, SELFPAY ==
[2021-08-06 12:09] LABS: Add Manual Diff / Slide Review NO; Basophils Absolute Auto 0 /uL (0-100); Basophils Percent Auto 0.9 % (0-2); Eosinophils Absolute Auto 100 /uL (0-450); Eosinophils Percent Auto 1.8 % (2-4); Lymphocytes Absolute Auto 1700 /uL (1100-4500); Lymphocytes Percent Auto 34.1 % (25-40); Mean Corpuscular HGB Conc 34.8 % (30-36); Mean Corpuscular Hemoglobin 32.5 PG (26-34); Mean Corpuscular Volume 93.2 fL (80-100); Monocytes Absolute Auto 500 /uL (0-900); Monocytes Percent Auto 10.8 % (3-14); Neutrophils Absolute Auto 2600 /uL (1500-7000); Neutrophils Percent Auto 52.4 % (50-75); Platelet Count 144 X10^3/uL (150-400); Red Blood Cell Count 4.61 X10^6/uL (4.5-5.9); Red Cell Distribution Width 14.2 % (11.6-14.8); White Blood Cell Count 4.9 X10^3/uL (4.5-11.0)
[2021-08-06 12:33] LABS: Alanine Aminotransferase 23 IU/L (<50); Albumin 4.2 g/dL (3.5-5.0); Albumin Globulin Ratio 1.7 (1.0-2.8); Alkaline Phosphatase 53 U/L (38-126); Aspartate Aminotransferase 22 IU/L (17-59); Blood Urea Nitrogen 25 mg/dL (9-20); Calcium 9.2 mg/dL (8.4-10.2); Carbon Dioxide 27 mmol/L (22-32); Chloride 103 mmol/L (98-107); Cholesterol 212 mg/dL (140-199); Estimated Glomerular Filt Rate > 60.0 mL/min (>60); Globulin 2.5 g/dL (1.7-4.1); Glucose 132 mg/dL (80-110); HDL Cholesterol 45 mg/dL (40-60); HEMOLYSIS 21 (0-50); LDL Cholesterol Calculated 143 mg/dL (<100); Potassium 4.4 mmol/L (3.4-5.1); Sodium 138 mmol/L (137-145); Total Protein 6.7 g/dL (6.3-8.2); Triglycerides 122 mg/dL (35-150)
[2021-08-06 12:59] LABS: TSH w/ Reflex to FT4 2.02 uIU/mL (0.47-4.68)
[2021-08-06 13:02] LABS: Testosterone 317 ng/dL (71.8-623)
== END ==
PROVIDERS: PCP Family Medicine; Referring Provider Family Medicine; Visit Provider Family Medicine
DX: E78.00 Pure hypercholesterolemia, unspecified (principal); I10 Essential (primary) hypertension
CPT/HCPCS: 36415; 80053; 80061; 84403; 84443; 85025

== ENCOUNTER → 2021-12-01 11:49 | Outpatient (CLI) | payer MEDICARE, BC, SELFPAY ==
[2021-12-06 13:10] LABS: Percent Free Testosterone 2.15 % (1.50-4.20); Testosterone Free 3.99 ng/dL (5.00-21.00); Testosterone Total 185.8 ng/dL (264.0-916.0)
== END ==
PROVIDERS: PCP Family Medicine; Referring Provider Family Medicine; Visit Provider Family Medicine
DX: I10 Essential (primary) hypertension (principal)
CPT/HCPCS: 36415; 84402; 84403

== ENCOUNTER → 2022-01-23 11:43 | Outpatient (CLI) | payer MEDICARE, BC, SELFPAY ==
[2022-01-23 13:42] LABS: Hemoglobin A1C% w Est Avg Glu 5.3 % (4.0-6.0)
[2022-01-23 13:45] LABS: Glucose 102 mg/dL (80-110)
== END ==
PROVIDERS: PCP Family Medicine; Referring Provider Family Medicine; Visit Provider Family Medicine
DX: E66.9 Obesity, unspecified (principal)
CPT/HCPCS: 36415; 82947; 83036

== ENCOUNTER → 2022-09-10 10:00 | Outpatient (CLI) | payer MEDICARE, BC, SELFPAY ==
[2022-09-10 10:36] LABS: Add Manual Diff / Slide Review NO; Basophils Absolute Auto 0 /uL (0-100); Basophils Percent Auto 0.4 % (0-2); Eosinophils Absolute Auto 100 /uL (0-450); Eosinophils Percent Auto 1.9 % (2-4); Hematocrit 43.6 % (41-53); Lymphocytes Absolute Auto 1600 /uL (1100-4500); Lymphocytes Percent Auto 34.3 % (25-40); Mean Corpuscular HGB Conc 34.5 % (30-36); Mean Corpuscular Hemoglobin 31.3 PG (26-34); Mean Corpuscular Volume 90.7 fL (80-100); Monocytes Absolute Auto 500 /uL (0-900); Monocytes Percent Auto 10.2 % (3-14); Neutrophils Absolute Auto 2400 /uL (1500-7000); Neutrophils Percent Auto 53.2 % (50-75); Platelet Count 127 X10^3/uL (150-400); Red Cell Distribution Width 14.5 % (11.6-14.8); White Blood Cell Count 4.6 X10^3/uL (4.5-11.0)
[2022-09-10 10:43] LABS: Hemoglobin A1C% w Est Avg Glu 5.7 % (4.0-6.0)
[2022-09-10 10:50] LABS: Alanine Aminotransferase 23 IU/L (<50); Albumin 4.1 g/dL (3.5-5.0); Albumin Globulin Ratio 1.5 (1.0-2.8); Alkaline Phosphatase 60 U/L (38-126); Aspartate Aminotransferase 23 IU/L (17-59); BUN Creatinine Ratio 27.4 (6-22); Bilirubin Total 0.5 mg/dL (0.2-1.3); Blood Urea Nitrogen 26 mg/dL (9-20); Calcium 8.7 mg/dL (8.4-10.2); Carbon Dioxide 28 mmol/L (22-32); Chloride 106 mmol/L (98-107); Cholesterol 189 mg/dL (140-199); Estimated Glomerular Filt Rate > 60 mL/min (>60); Globulin 2.8 g/dL (1.7-4.1); Glucose 105 mg/dL (80-110); HDL Cholesterol 45 mg/dL (40-60); HEMOLYSIS < 15 (0-50); LDL Cholesterol Calculated 136 mg/dL (<100); Potassium 3.9 mmol/L (3.4-5.1); Sodium 142 mmol/L (137-145); Total Protein 6.9 g/dL (6.3-8.2); Triglycerides 40 mg/dL (35-150)
[2022-09-10 11:34] LABS: TSH w/ Reflex to FT4 1.48 uIU/mL (0.47-4.68)
[2022-09-13 02:07] LABS: Testosterone, Free 13.2 pg/mL (6.6-18.1)
== END ==
PROVIDERS: PCP Family Medicine; Referring Provider Family Medicine; Visit Provider Family Medicine
DX: E78.00 Pure hypercholesterolemia, unspecified (principal); I10 Essential (primary) hypertension
CPT/HCPCS: 36415; 80053; 80061; 83036; 84402; 84443; 85025

== ENCOUNTER → 2022-10-30 10:25 | Outpatient (CLI) | payer MEDICARE, BC, SELFPAY ==
[2022-10-30 11:37] LABS: Add Manual Diff / Slide Review NO; Basophils Absolute Auto 0 /uL (0-100); Basophils Percent Auto 0.7 % (0-2); Eosinophils Absolute Auto 100 /uL (0-450); Eosinophils Percent Auto 1.4 % (2-4); Hematocrit 48.7 % (41-53); Hemoglobin 16.7 g/dL (13.5-17.5); Lymphocytes Absolute Auto 700 /uL (1100-4500); Lymphocytes Percent Auto 14.4 % (25-40); Mean Corpuscular HGB Conc 34.2 % (30-36); Mean Corpuscular Hemoglobin 31.7 PG (26-34); Mean Corpuscular Volume 92.7 fL (80-100); Monocytes Absolute Auto 500 /uL (0-900); Monocytes Percent Auto 9.8 % (3-14); Neutrophils Absolute Auto 3800 /uL (1500-7000); Neutrophils Percent Auto 73.7 % (50-75); Platelet Count 134 X10^3/uL (150-400); Red Blood Cell Count 5.26 X10^6/uL (4.5-5.9); White Blood Cell Count 5.1 X10^3/uL (4.5-11.0)
[2022-10-30 11:51] LABS: INR 1.5 (0.9-1.3); Prothrombin Time 17.8 SECONDS (10.1-12.7)
[2022-10-30 11:52] LABS: Hemoglobin A1C% w Est Avg Glu 5.3 % (4.0-6.0)
[2022-10-30 11:54] LABS: PTT Partial Thromboplastin Tim 38 SECONDS (26-36)
[2022-10-30 12:13] LABS: BUN Creatinine Ratio 29.5 (6-22); Blood Urea Nitrogen 31 mg/dL (9-20); Calcium 8.7 mg/dL (8.4-10.2); Carbon Dioxide 29 mmol/L (22-32); Chloride 101 mmol/L (98-107); Estimated Glomerular Filt Rate > 60 mL/min (>60); Glucose 97 mg/dL (80-110); HEMOLYSIS < 15 (0-50); Potassium 3.9 mmol/L (3.4-5.1); Sodium 138 mmol/L (137-145)
[2022-10-30 12:32] LABS: Testosterone 234 ng/dL (71.8-623)
== END ==
PROVIDERS: PCP Family Medicine; Referring Provider Family Medicine; Visit Provider Family Medicine
DX: Z01.818 Encounter for other preprocedural examination (principal); I10 Essential (primary) hypertension; R79.89 Other specified abnormal findings of blood chemistry; M51.36 Other intervertebral disc degeneration, lumbar region; E78.00 Pure hypercholesterolemia, unspecified
CPT/HCPCS: 36415; 80048; 83036; 84403; 85025; 85610; 85730

== ENCOUNTER → 2023-08-17 11:45 | Outpatient (CLI) | payer MEDICARE, BC, SELFPAY ==
[2023-08-17 12:33] LABS: Add Manual Diff / Slide Review NO; Basophils Absolute Auto 0 /uL (0-100); Basophils Percent Auto 0.9 % (0-2); Eosinophils Absolute Auto 0 /uL (0-450); Hemoglobin 15.7 g/dL (13.5-17.5); Lymphocytes Absolute Auto 1300 /uL (1100-4500); Lymphocytes Percent Auto 26.8 % (25-40); Mean Corpuscular Hemoglobin 32.8 PG (26-34); Mean Corpuscular Volume 93.8 fL (80-100); Monocytes Absolute Auto 400 /uL (0-900); Monocytes Percent Auto 9.1 % (3-14); Neutrophils Absolute Auto 3000 /uL (1500-7000); Neutrophils Percent Auto 62.2 % (50-75); Platelet Count 138 X10^3/uL (150-400); Red Cell Distribution Width 14.3 % (11.6-14.8); White Blood Cell Count 4.9 X10^3/uL (4.5-11.0)
[2023-08-17 12:35] LABS: Hemoglobin A1C% w Est Avg Glu 5.4 % (4.0-6.0)
[2023-08-17 12:59] LABS: Alanine Aminotransferase 20 IU/L (<50); Albumin 4.2 g/dL (3.5-5.0); Albumin Globulin Ratio 1.4 (1.0-2.8); Alkaline Phosphatase 62 U/L (38-126); Aspartate Aminotransferase 20 IU/L (17-59); BUN Creatinine Ratio 35.8 (6-22); Bilirubin Total 0.9 mg/dL (0.2-1.3); Blood Urea Nitrogen 38 mg/dL (9-20); Calcium 9.9 mg/dL (8.4-10.2); Carbon Dioxide 26 mmol/L (22-32); Chloride 104 mmol/L (98-107); Cholesterol 266 mg/dL (140-199); Estimated Glomerular Filt Rate > 60 mL/min (>60); Globulin 3.1 g/dL (1.7-4.1); Glucose 111 mg/dL (80-110); HDL Cholesterol 44 mg/dL (40-60); HEMOLYSIS < 15 (0-50); LDL Cholesterol Calculated 208 mg/dL (<100); Potassium 4.3 mmol/L (3.4-5.1); Sodium 140 mmol/L (137-145); Total Protein 7.3 g/dL (6.3-8.2); Triglycerides 70 mg/dL (35-150)
[2023-08-17 13:28] LABS: Prostate Specific Antigen Scrn 1.27 ng/mL (0.1-4.0)
[2023-08-29 18:50] LABS: Percent Free Testosterone 1.86 % (1.50-4.20); Testosterone Free 6.46 ng/dL (5.00-21.00); Testosterone Total 347.1 ng/dL (264.0-916.0)
== END ==
PROVIDERS: PCP Family Medicine; Referring Provider Family Medicine; Visit Provider Family Medicine
DX: Z12.5 Encounter for screening for malignant neoplasm of prostate (principal); I10 Essential (primary) hypertension; R79.89 Other specified abnormal findings of blood chemistry; E78.00 Pure hypercholesterolemia, unspecified; E66.9 Obesity, unspecified
CPT/HCPCS: 80053; 80061; 83036; 84402; 84403; 84443; 85025; G0103

== ENCOUNTER 2023-11-18 12:29 | Day surgery (SDC) | payer MEDICARE, BC, SELFPAY ==
--- NOTE | 2023-11-18 | PATH_ITS ---
[facility] Accession Number: [id number] No. of containers..05 Tissue . 01 Material submitted: . PART A: pylorus - PYLORIC MASS PART B: gastrointestinal site - ANTRUM PART C: esophagus, E-G Junction - GE JUNCTION PART D: colon - ASCENDING POLYP PART E: colon - TRANSVERSE POLYP . 01 Diagnosis: Part A: PYLORIC MASS: Gastric mucosa with reactive foveolar hyperplasia with surface erosion. No intestinal metaplasia, dysplasia, malignancy, or Helicobacter organisms identified. See comment. . Specimen Comments: These changes could be considered a gastric hyperplastic polyp. No neoplasm is seen in the multiple levels examined. This case has also been reviewed by Dr. Elizabeth Haji, who concurs with the diagnosis. . Part B: ANTRUM: Gastric mucosa with mild chronic inflammation. No Helicobacter organisms identified. No intestinal metaplasia, dysplasia, or malignancy identified. . 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 No dysplasia identified. See comment. . Specimen Comments: The features are consistent with Ward's esophagus in the right clinical setting. . Part D: ASCENDING POLYP: Tubular adenoma. . Part E: TRANSVERSE POLYP: Tubular adenoma. [facility] 11/24/2023 1446 Local . 01 Electronically signed: . Giuseppe Garcia MD, Pathologist NPI- [id number] . 01 Gross description: . Part A: PYLORIC MASS: Received in formalin are 2 fragments of lopes soft tissue measuring 0.7 x 0.6 x 0.6 cm. Specimen is sectioned and submitted in its entirety in 1 cassette. . Part B: ANTRUM: Received in formalin are 4 fragment(s) of lopes, soft tissue measuring 0.1 x 0.1 x 0.1 cm to 0.3 x 0.3 x 0.2 cm submitted entirely in 1 cassette(s) . Part C: GE JUNCTION: Received in formalin are 3 fragment(s) of lopes, soft tissue measuring 0.1 x 0.1 x 0.1 cm to 0.3 x 0.3 x 0.2 cm submitted entirely in 1 cassette(s) . Part D: ASCENDING POLYP: Received in formalin is 1 fragment(s) of lopes, soft tissue measuring 0.7 x 0.6 x 0.6 cm submitted entirely in 1 cassette(s) . Part E: TRANSVERSE POLYP: Received in formalin is 1 fragment(s) of lopes, soft tissue measuring 0.8 x 0.4 x 0.3 cm submitted entirely in 1 cassette(s) /NOAH 11/24/2023 1446 Local . 01 Microscopic: . Part B: ANTRUM: An immunohistochemical stain was performed to evaluate for Helicobacter organisms and is negative. The control stains appropriately. * This test was developed and its performance characteristics determined by [employer]. It has not been cleared or approved by the U.S. Food and Drug Administration. The FDA has determined that such clearance or approval is not necessary. This test is used for clinical purposes. It should not be regarded as investigational or for research. . 01 Pathologist provided ICD-10: D12.2, D12.3, K22.70, K29.50, K31.7 . 01 CPT . 397510, 934590, 869954, 230545, 938547, G07624 Specimen Comment: A courtesy copy of this report has been sent to [phone] Performed at: 01 [facility] [address] [place] [address] [address] [facility], [place], [place] [id number] MD Giuseppe Garcia MD Phone: [phone]
[2023-11-18] MEDS: LACTATED RINGERS 1,000 ML 42 ML IV (13:04)
--- NOTE | 2023-11-18 13:20 | P.HP_ITS ---
History of Present Illness History of Present Illness Date Patient Seen: 11/18/23 Time Patient Seen: 13:20 Chief complaint: [facility] [place] Narrative: Shade is a 73-year-old man who presents for EGD and colonoscopy. The last time he had both was probably 2014. He was told he had Ward's and he thinks he may have had a polyp. He has occasional reflux symptoms especially at night. He has rare dysphagia. [facility] Medical History (Updated 11/18/23 @ 13:21 by Jeremias Francis MD) Vision disorder Sleep apnea (~2007) Asthma Gout (~2013) Ankle pain (~2012) Mumps Measles Chicken pox Urinary frequency GERD (gastroesophageal reflux disease) Ward's syndrome (~1999) Hypertension Skin cancer (~2001) Surgical History Anesthesia Acromial fracture History of throat surgery (~1991) Shoulder pain (~2005) History of lumbosacral spine surgery (~2012) History of spinal fusion (~05/2013) History of vasectomy (~1983) History of tonsillectomy (~1953) Family History Brother Age: 72 Back pain Brother Age: 69 Back pain Sister Age: 81 Obese Sister Age: 80 Overweight Social History marital status: Smoking Status: Former smoker alcohol intake: current (1-2 A DAY ) substance use type: does not use Meds Home Medications and Allergies Home Medications Medication Instructions Recorded Confirmed Type verapamil 180 mg 24 hr 180 mg PO DAILY #30 caps 01/14/21 11/18/23 Rx capsule,extended release apixaban 5 mg tablet (Eliquis) See Rx Instructions .Route 03/17/22 11/18/23 Rx .COMPLEX #180 tabs tadalafil 20 mg tablet 20 mg PO Q3D #24 tabs 08/03/23 11/18/23 Rx ipratropium bromide 42 mcg (0.06 2 spray intranasal ONCE #15 mL 09/09/23 11/18/23 Rx %) nasal spray semaglutide 2 mg/dose (8 mg/3 mL) 2 mg SUBCUT WEEKLY Weight 09/09/23 11/17/23 History subcutaneous pen injector management lisinopril 40 mg tablet 40 mg PO DAILY #90 tabs 09/14/23 11/18/23 Rx pantoprazole 40 mg tablet,delayed 40 mg PO DAILY #90 tabs 10/04/23 11/18/23 Rx release Allergies Allergy/AdvReac Type Severity Reaction Status Date / Time No Known Drug Allergies Allergy Verified 09/09/23 11:54 Exam Const General: No acute distress Resp Effort & Inspection: normal respiratory effort Assessment & Plan Assessment and plan (1) History of Ward's esophagus: Status: Acute (2) Colon cancer screening: Status: Acute Plan We reviewed the risks and benefits of EGD and colonoscopy and he would like to proceed.
[2023-11-18 13:25] VITALS: BP 159/88; PULSE 80; RESP 18; TEMP 36.2; O2SAT 96
--- NOTE | 2023-11-18 14:42 | P.OP.EGD&C_ITS ---
Operative Date/Time/Diagnoses Date of procedure: 11/18/23 Time of procedure: 14:42 Pre-op diagnosis: GERD, history of Ward's and colon cancer screening Post-op diagnosis: same Procedure & Clinicians Study performed: EGD and colonoscopy Same procedure as scheduled: Yes Surgeon: Jeremias Francis Procedure Notes Procedure in detail: Surgeon: Jeremias Francis MD Anesthesia: Elizabeth Martinez CRNA Procedure in detail: A timeout was performed. A bite blocked was placed and monitors were attached to the patient. The patient was positioned in the left lateral decubitus position. Sedation was administered. Once the patient was sedated the endoscope was inserted through the bite block and passed through the esophagus and stomach and into the duodenum. The duodenal itself appeared normal.. We then withdrew the scope into the stomach. There was a roughly 1 cm polypoid mass right on pyloric channel. It was removed with a hot snare. There was also antritis and random biopsies were taken from the antrum using a cold forceps. The endoscope was retroflexed and no hiatal hernia was seen. The endoscope was straightned and withdrawn into the esophagus. There appeared to be salmon-colored patches of mucosa at the GE junction which were biopsied with the cold forceps. No other abnormalities were found. EGD findings: 1 cm polypoid mass at the pyloric channel, antritis and salmon- colored patches of mucosa at the junction Next we repositioned the patient for a colonoscopy. A digital rectal exam was performed and was normal. The colonoscope was inserted and advanced to the cecum. The appendiceal orifice was identified and photographed. The scope was slowly withdrawn over greater than 6 minutes. There was a 7 mm polyp in the ascending colon removed with a cold snare. There was a 5 mm polyp in the transverse colon removed with a cold snare. The scope was retroflexed in the rectum and internal hemorrhoids were noted. Colonoscopy findings: 7 mm polyp in the ascending colon and 5 mm polyp in the transverse colon Total procedural EBL: 5 mL Scope withdrawal time: 8 minutes Sedation minutes: 33 minutes Post-procedure Disposition: PACU
[2023-11-18 14:45] VITALS: BP 131/80; PULSE 85; RESP 19; TEMP 37.4; O2SAT 95
[2023-11-18 14:50] VITALS: BP 138/90; PULSE 82; RESP 20; O2SAT 96
[2023-11-18 14:55] VITALS: BP 138/90; PULSE 77; RESP 17; O2SAT 96
[2023-11-18 15:00] VITALS: BP 151/89; PULSE 74; RESP 14; TEMP 37.2; O2SAT 97
== END 2023-11-18 15:20 | disposition home or self-care (01) ==
PROVIDERS: PCP Family Medicine; Referring Provider Surgery; Visit Provider Surgery
PROC: 0DJ08ZZ Inspection of Upper Intestinal Tract, Via Natural or Artificial Opening Endoscopic (ICD-10-PCS; CPT 43235; principal; 2023-11-18 13:30)
PROC: 0DJD8ZZ Inspection of Lower Intestinal Tract, Via Natural or Artificial Opening Endoscopic (ICD-10-PCS; CPT 45378; 2023-11-18 13:30)
DX: Z12.11 Encounter for screening for malignant neoplasm of colon (principal); K21.9 Gastro-esophageal reflux disease without esophagitis; Z87.19 Personal history of other diseases of the digestive system; K64.8 Other hemorrhoids; K29.50 Unspecified chronic gastritis without bleeding; K31.7 Polyp of stomach and duodenum; K22.70 Barrett's esophagus without dysplasia; D12.2 Benign neoplasm of ascending colon; D12.3 Benign neoplasm of transverse colon
CPT/HCPCS: 45385; 43239; J2704

== ENCOUNTER → 2023-12-06 14:53 | Outpatient (CLI) | payer MEDICARE, BC, SELFPAY ==
--- NOTE | 2023-12-06 14:58 | DI.RAD.S_ITS ---
PROCEDURE: XR LUMBAR SPINE MIN 4V INDICATIONS: LUMBAR FUSION TECHNIQUE: 5 views of the lumbar spine acquired, including flexion and extension views. COMPARISON: None. FINDINGS: Bones: 5 nonrib-bearing vertebrae are present. There is normal bony alignment. No vertebral body compression fractures. No suspicious bony lesions. L3-4, L4-5 and L5-S1 interbody fusion with associated posterior marimar and screw instrumentation. Upper lumbar spine disc space narrowing with arthropathy. Soft tissues: Overlying bowel gas pattern is normal. No suspicious soft tissue calcifications. Flexion/extension: 3 mm translation between flexion extension noted at L2-3 IMPRESSION: Lower lumbar spine instrumented fusion. Approximately 3 mm of translation between flexion extension at L2-3 suggests an element of instability Approved by: Sami Amado M.D. on 12/06/2023 at 19:01
== END ==
PROVIDERS: PCP Family Medicine; Referring Provider Student in an Organized Health Care Education/Training Program; Visit Provider Student in an Organized Health Care Education/Training Program
DX: Z09 Encounter for follow-up examination after completed treatment for conditions other than malignant neoplasm (principal); Z98.1 Arthrodesis status
CPT/HCPCS: 72110

== ENCOUNTER → 2023-12-28 07:33 | Outpatient (CLI) | payer MEDICARE, BC, SELFPAY ==
[2023-12-28 08:55] LABS: Prolactin 28.9 ng/mL (3.7-17.9)
[2023-12-28 08:56] LABS: Luteinizing Hormone 2.03 mIU/mL
[2023-12-28 09:12] LABS: Estradiol, Total 56.1 pg/mL
[2024-01-03 06:09] LABS: Percent Free Testosterone 2.62 % (1.50-4.20); Testosterone Free 11.03 ng/dL (5.00-21.00); Testosterone Total 420.9 ng/dL (264.0-916.0)
== END ==
PROVIDERS: PCP Family Medicine; Referring Provider Urology; Visit Provider Urology
DX: N52.9 Male erectile dysfunction, unspecified (principal)
CPT/HCPCS: 36415; 82670; 83002; 84146; 84402; 84403

== ENCOUNTER 2024-01-10 11:13 | Emergency (ER) | payer MEDICARE, BC, SELFPAY ==
[2024-01-10] VITALS (11 sets, daily range): BP systolic 124–168; BP diastolic 61–83; PULSE 67–80; RESP 13–25; TEMP 36.6; O2SAT 94–98; BMI 39.9
--- NOTE | 2024-01-10 11:36 | DI.RAD.S_ITS ---
PROCEDURE: XR CHEST 1V INDICATIONS: chest pain TECHNIQUE: One view of the chest was acquired. COMPARISON: [facility], CR, XR CHEST 1V, 03/11/2020, 12:36. FINDINGS: Surgical changes and devices: None. Lungs and pleura: Lungs are clear. No pleural effusions or pneumothorax. Mediastinum: Mediastinal contours appear normal. Heart size is normal. Bones and chest wall: No suspicious bony lesions. Overlying soft tissues appear unremarkable. IMPRESSION: No acute cardiopulmonary pathology. Dictated by: Koko Wilcox M.D. on 01/10/2024 at 11:56 Approved by: Koko Wilcox M.D. on 01/10/2024 at 11:57
[2024-01-10 11:50] LABS: Add Manual Diff / Slide Review NO; Basophils Absolute Auto 0 /uL (0-100); Basophils Percent Auto 0.9 % (0-2); Eosinophils Absolute Auto 100 /uL (0-450); Eosinophils Percent Auto 1.5 % (2-4); Hematocrit 47.2 % (41-53); Hemoglobin 16.3 g/dL (13.5-17.5); Lymphocytes Absolute Auto 1800 /uL (1100-4500); Lymphocytes Percent Auto 33.1 % (25-40); Mean Corpuscular HGB Conc 34.6 % (30-36); Mean Corpuscular Hemoglobin 32.5 PG (26-34); Monocytes Absolute Auto 500 /uL (0-900); Monocytes Percent Auto 9.6 % (3-14); Neutrophils Absolute Auto 2900 /uL (1500-7000); Neutrophils Percent Auto 54.9 % (50-75); Platelet Count 144 X10^3/uL (150-400); Red Blood Cell Count 5.02 X10^6/uL (4.5-5.9); Red Cell Distribution Width 13.9 % (11.6-14.8); White Blood Cell Count 5.3 X10^3/uL (4.5-11.0)
[2024-01-10 11:59] LABS: INR 1.3 (0.9-1.3)
[2024-01-10 12:02] LABS: PTT Partial Thromboplastin Tim 44 SECONDS (25.1-36.5)
[2024-01-10 12:04] LABS: Alanine Aminotransferase 19 IU/L (<50); Albumin 4.7 g/dL (3.5-5.0); Albumin Globulin Ratio 1.5 (1.0-2.8); Alkaline Phosphatase 61 U/L (38-126); Aspartate Aminotransferase 23 IU/L (17-59); BUN Creatinine Ratio 21.6 (6-22); Bilirubin Total 1.1 mg/dL (0.2-1.3); Blood Urea Nitrogen 22 mg/dL (9-20); Calcium 9.4 mg/dL (8.4-10.2); Carbon Dioxide 26 mmol/L (22-32); Chloride 106 mmol/L (98-107); Creatine Kinase 70 U/L (55-170); Estimated Glomerular Filt Rate > 60 mL/min (>60); Globulin 3.1 g/dL (1.7-4.1); Glucose 102 mg/dL (80-110); HEMOLYSIS < 15 (0-50); Lipase 65 U/L (23-300); Magnesium 2.2 mg/dL (1.6-2.3); Potassium 4.1 mmol/L (3.4-5.1); Sodium 137 mmol/L (137-145); Total Protein 7.8 g/dL (6.3-8.2)
[2024-01-10 12:15] LABS: Troponin I < 0.012 ng/mL (0.01-0.034)
--- NOTE | 2024-01-10 12:37 | ED.CHESTPAIN ---
HPI - Chest Pain General Chief Complaint: Chest Pain Stated Complaint: heart issues per pt Time Seen by Provider: 01/10/24 11:41 Source: patient Mode of arrival: Family Vehicle Limitations: no limitations History of Present Illness HPI narrative: Patient is a 73-year-old male. He is here for evaluation for approximately 1 week of occasional sharp stabbing discomfort that occurs in his chest that lasts for seconds. He also has some associated chest pressure that also lasts for varying amounts of time. It is very minor pressure. He states that he currently is having the pressure and it has been there for the past couple days. No shortness of breath. Today he also got a little lightheaded. No nausea or vomiting no abdominal pain no urinary symptoms. No prior history of coronary artery disease. Does have a history of AFib but states that he has not had any issues with this recently Related Data Home Medications Medication Instructions Recorded Confirmed semaglutide 2 mg/dose (8 mg/3 mL) 2 mg SUBCUT WEEKLY Weight 09/09/23 11/17/23 subcutaneous pen injector management Previous Rx's Medication Instructions Recorded verapamil 180 mg 24 hr 180 mg PO DAILY #30 caps 01/14/21 capsule,extended release apixaban 5 mg tablet (Eliquis) See Rx Instructions .Route 03/17/22 .COMPLEX #180 tabs tadalafil 20 mg tablet 20 mg PO Q3D #24 tabs 08/03/23 lisinopril 40 mg tablet 40 mg PO DAILY #90 tabs 09/14/23 pantoprazole 40 mg tablet,delayed 40 mg PO DAILY #90 tabs 10/04/23 release ipratropium bromide 42 mcg (0.06 2 spray intranasal ONCE #15 mL 12/21/23 %) nasal spray Allergies Allergy/AdvReac Type Severity Reaction Status Date / Time No Known Drug Allergies Allergy Verified 09/09/23 11:54 Review of Systems Review of Systems ROS Unobtainable: All systems reviewed & are unremarkable except as noted in HPI and below Patient History Medical History (Updated 01/10/24 @ 14:31 by Gerson Tavares DO) Vision disorder Sleep apnea (~2007) Asthma Gout (~2013) Ankle pain (~2012) Mumps Measles Chicken pox Urinary frequency GERD (gastroesophageal reflux disease) Ward's syndrome (~1999) Hypertension Skin cancer (~2001) Surgical History Anesthesia Acromial fracture History of throat surgery (~1991) Shoulder pain (~2005) History of lumbosacral spine surgery (~2012) History of spinal fusion (~05/2013) History of vasectomy (~1983) History of tonsillectomy (~1953) Family History Brother Age: 72 Back pain Brother Age: 69 Back pain Sister Age: 81 Obese Sister Age: 80 Overweight Social History marital status: Smoking Status: Former smoker alcohol intake: current substance use type: does not use Smoking Status: Former smoker alcohol intake frequency: 0-2 drinks per day Substance Use Type: does not use Exam Initial Vital Signs Initial Vital Signs: Vital Signs Temperature 97.9 F 01/10/24 11:37 Pulse Rate 80 01/10/24 11:37 Respiratory Rate 16 01/10/24 11:37 Blood Pressure 168/71 H 01/10/24 11:37 Pulse Oximetry 98 01/10/24 11:37 Oxygen Delivery Method Room Air 01/10/24 11:37 Const General: cooperative, comfortable and No ill appearing HENMT Head: normal to inspection and normocephalic Resp Effort & Inspection: normal respiratory effort Auscultation: clear to auscultation bilaterally Cardio Rate: regular rate Rhythm: regular rhythm GI Inspection: normal to inspection and non-distended Skin General: no rashes or lesions noted Neuro General: patient alert, patient awake and moves all extremities Extrem General: normal to inspection and capillary refill normal Scores HEART Score Heart Score history: Slightly Suspicious Heart Score EKG: Normal Heart Score Age: > or = 65 years old Heart Score risk factors: 1-2 risk factors Heart Score troponin: < or = to normal limit Heart Score Total: 3 Course Orders Ordered: ED Orders 01/10/24 11:36 XR chest 1V Stat EKG-12 Lead Stat 01/10/24 11:42 Complete Blood Count AUTO DIFF Stat Comprehensive Metabolic Panel Stat Lipase Stat Magnesium Stat PTT Partial Thromboplastin Joaquín Stat Prothrombin Time INR Stat Troponin & CK Cardiac Panel Stat 01/10/24 13:48 Troponin & CK Cardiac Panel Stat Discontinued Medications Aspirin (Aspirin 81 Mg Chew Tab) 324 mg PO NOW ONE Stop: 01/10/24 11:37 Last Admin: 01/10/24 14:03 Dose: Not Given Documented By: CHRIS Vital Signs Vital signs: Vital Signs - 8 hr 01/10/24 11:37 01/10/24 11:42 01/10/24 12:00 Temperature 97.9 F Pulse Rate 80 78 76 Respiratory Rate 16 21 13 Blood Pressure 168/71 H Pulse Oximetry 98 98 95 Oxygen Delivery Method Room Air 01/10/24 12:01 01/10/24 12:01 01/10/24 12:30 Temperature Pulse Rate 76 75 Respiratory Rate 23 19 Blood Pressure 126/65 Pulse Oximetry 94 97 Oxygen Delivery Method 01/10/24 12:30 01/10/24 13:00 01/10/24 13:00 Temperature Pulse Rate 72 Respiratory Rate 16 Blood Pressure 130/72 124/68 Pulse Oximetry 98 Oxygen Delivery Method 01/10/24 13:28 01/10/24 13:28 01/10/24 13:30 Temperature Pulse Rate 68 69 Respiratory Rate 25 H 23 Blood Pressure 156/82 H Pulse Oximetry 98 96 Oxygen Delivery Method 01/10/24 13:30 01/10/24 13:48 01/10/24 13:48 Temperature Pulse Rate 69 Respiratory Rate 19 Blood Pressure 132/61 159/82 H Pulse Oximetry 98 Oxygen Delivery Method 01/10/24 14:00 01/10/24 14:00 01/10/24 14:30 Temperature Pulse Rate 67 68 Respiratory Rate 15 19 Blood Pressure 155/76 H Pulse Oximetry 96 97 Oxygen Delivery Method Room Air Room Air 01/10/24 14:30 Temperature Pulse Rate Respiratory Rate Blood Pressure 158/83 H Pulse Oximetry Oxygen Delivery Method MDM - Chest Pain Lab Data Attestation: I reviewed the patient's lab results. 01/10/24 11:42 01/10/24 11:42 Labs: Lab Results 01/10/24 01/10/24 Range/Units 11:42 13:48 WBC 5.3 (4.5-11.0) X10^3/uL RBC 5.02 (4.5-5.9) X10^6/uL Hgb 16.3 (13.5-17.5) g/dL Hct 47.2 (41-53) % MCV 94.0 (80-100) fL MCH 32.5 (26-34) PG MCHC 34.6 (30-36) % RDW 13.9 (11.6-14.8) % Plt Count 144 L (150-400) X10^3/uL Neut % (Auto) 54.9 (50-75) % Lymph % (Auto) 33.1 (25-40) % Floyd % (Auto) 9.6 (3-14) % Eos % (Auto) 1.5 L (2-4) % Baso % (Auto) 0.9 (0-2) % Neut # (Auto) 2900 (5765-3340) /uL Lymph # (Auto) 1800 (6552-6226) /uL Floyd # (Auto) 500 (0-900) /uL Eos # (Auto) 100 (0-450) /uL Baso # (Auto) 0 (0-100) /uL PT 15.0 H (9.4-12.5) SECONDS INR 1.3 (0.9-1.3) APTT 44 H (25.1-36.5) SECONDS Sodium 137 (137-145) mmol/L Potassium 4.1 (3.4-5.1) mmol/L Chloride 106 (98-107) mmol/L Carbon Dioxide 26 (22-32) mmol/L BUN 22 H (9-20) mg/dL Creatinine 1.02 (0.66-1.25) mg/dL Estimated GFR > 60 (>60) mL/min BUN/Creatinine Ratio 21.6 (6-22) Glucose 102 (80-110) mg/dL Calcium 9.4 (8.4-10.2) mg/dL Magnesium 2.2 (1.6-2.3) mg/dL Total Bilirubin 1.1 (0.2-1.3) mg/dL AST 23 (17-59) IU/L ALT 19 (<50) IU/L Alkaline Phosphatase 61 (38-126) U/L Total Creatine Kinase 70 69 (55-170) U/L Troponin I < 0.012 < 0.012 (0.01-0.034) ng/mL Total Protein 7.8 (6.3-8.2) g/dL Albumin 4.7 (3.5-5.0) g/dL Globulin 3.1 (1.7-4.1) g/dL Albumin/Globulin Ratio 1.5 (1.0-2.8) Lipase 65 (23-300) U/L Imaging Data Chest x-ray: Radiologist's Impression: PROCEDURE: XR CHEST 1V INDICATIONS: chest pain TECHNIQUE: One view of the chest was acquired. COMPARISON: [facility], CR, XR CHEST 1V, 03/11/2020, 12:36. FINDINGS: Surgical changes and devices: None. Lungs and pleura: Lungs are clear. No pleural effusions or pneumothorax. Mediastinum: Mediastinal contours appear normal. Heart size is normal. Bones and chest wall: No suspicious bony lesions. Overlying soft tissues appear unremarkable. IMPRESSION: No acute cardiopulmonary pathology. Dictated by: Koko Wilcox M.D. on 01/10/2024 at 11:56 ECG Data Attestation: I personally reviewed and interpreted this ECG as follows: Interpretation: Sinus rhythm Ventricular rate is 74 Normal axis First-degree AV block AK interval 246 milliseconds Occasional PAC No ST T wave changes MDM Narrative Medical decision making narrative: Patient has a low risk heart score. Troponins are negative x2. Nonischemic EKG. Chest x-ray is unremarkable. He does have history of reflux disease and he states this feels different than that. He did have a pharmacologic stress test done within the past year which he states he was told that everything was unremarkable. I do not have a specific etiology of the patient's symptoms although I do feel that ACS is unlikely given his presentation today and his labs. I advised that he contact his primary care doctor for a follow-up. He was given return precautions. He expressed understanding and agreement. Discharge Plan Departure Patient Disposition: Home Clinical Impression: Atypical chest pain Instructions: DI for Atypical Chest Pain Activity Restrictions/Additional Instructions: Continue to take all of your medications as directed. Contact your primary care doctor for a follow-up. Return to the emergency department for new or worsening symptoms. Prescriptions: No Action verapamil 180 mg capsule,ext rel. pellets 24 hr 180 mg PO DAILY Qty: 30 0RF Eliquis 5 mg tablet See Rx Instructions .ROUTE .COMPLEX Qty: 180 3RF Dose Instruction: TAKE 1 TABLET TWICE A DAY Rx Instructions: TAKE 1 TABLET TWICE A DAY tadalafil 20 mg tablet 20 mg PO Q3D Qty: 24 5RF lisinopril 40 mg tablet 40 mg PO DAILY Qty: 90 3RF pantoprazole 40 mg tablet,delayed release (DR/EC) 40 mg PO DAILY Qty: 90 3RF ipratropium bromide 42 mcg (0.06 %) spray,non-aerosol 2 spray intranasal ONCE Qty: 15 11RF Rx Instructions: administer into each nostril semaglutide 2 mg/dose (8 mg/3 mL) pen injector 2 mg SUBCUT WEEKLY Patient Comments: Having difficulty sourcing it. Out right now, but need to stay on in order to maintain weight loss (down over 50 lbs). Choice of Ozempic (off label) or Wegovy (on label). Referrals: Jurgen Smith MD [Primary Care Provider] - Stand Alone Forms: Patient Portal/API
[2024-01-10 14:05] LABS: Creatine Kinase 69 U/L (55-170)
[2024-01-10 14:18] LABS: Troponin I < 0.012 ng/mL (0.01-0.034)
== END 2024-01-10 14:34 | disposition home or self-care (01) ==
PROVIDERS: Emergency Provider Emergency Medicine; PCP Family Medicine
DX: R07.89 Other chest pain (principal)
CPT/HCPCS: 36415; 71045; 80053; 82550; 83690; 83735; 84484; 85025; 85610; 85730; 93005; 93010; 99284

== ENCOUNTER → 2024-02-25 08:08 | Outpatient (CLI) | payer MEDICARE, BC, SELFPAY ==
--- NOTE | 2024-02-25 08:09 | DI.ECHO.S_ITS ---
[facility] : : [facility] [address] : : [facility] : : [place], : : [place] [address] : : Phone: [phone] Echocardiogram Report + + :Name: ADELITA FRANK Study Date: 02/25/2024 Height: 75 in : :[facility] ReadingLocation: Weight: 320 lb : : Gender: Male BSA: 2.7 m2 : :: 1950 Age: 74 yrs BP: 143/83 mmHg: :Reason For Study: CHEST PAIN : :Ordering Physician: CIRILO, : :JURGEN Performed By: Jurgen Awad : :Referring: JURGEN KERR : + + Interpretation Summary The ejection fraction is estimated to be 55-60%. Grade I disastolic dysfunction. The right ventricle is mildly dilated. The right ventricular systolic function is normal. The left atrium is moderately dilated. There is moderate mitral regurgitation. There is mild aortic regurgitation. The IVC is of normal diameter and collapses greater than 50% with a sniff. This suggests a low right atrial pressure of 3 mm Hg. Procedure: A two-dimensional transthoracic echocardiogram with color flow and Doppler was performed. The study quality was technically adequate. The patient was in sinus rhythm with heart rates between 68-75 bpm during the exam. Left Ventricle: The left ventricle is normal in size. Left ventricular wall thickness is mildly increased. The ejection fraction is estimated to be 55- 60%. There are no obvious focal wall motion abnormalities noted but poor endocardial definition reduces the sensitivity for the detection of such. Grade I disastolic dysfunction. Right Ventricle: The right ventricle is mildly dilated. The right ventricular systolic function is normal. Atria: The left atrium is moderately dilated. The right atrium is mildly dilated. The interatrial septum grossly appears intact with no obvious evidence for an atrial septal defect. Mitral Valve: The mitral valve is normal. There is no mitral valve stenosis. There is moderate mitral regurgitation. Aortic Valve: The aortic valve is trileaflet. There is no aortic valve stenosis. There is mild aortic regurgitation. Tricuspid Valve: The tricuspid valve is normal. There is no tricuspid stenosis. There is trace tricuspid regurgitation. Pulmonic Valve: The pulmonic valve is not well visualized. There is no pulmonic valvular stenosis. There is mild pulmonic regurgitation. Great Vessels: The aortic root is normal size. The dimensions of the ascending aorta are normal. The IVC is of normal diameter and collapses greater than 50% with a sniff. This suggests a low right atrial pressure of 3 mm Hg. Pericardium/ Pleura There is no pericardial effusion. There is no pleural effusion. MMode/2D Measurements & Calculations LVIDd: 4.8 cm LVOT diam: 2.4 cm LVIDs: 3.5 cm Ao root diam: 3.7 cm IVSd: 1.2 cm asc Aorta Diam: 3.5 cm LVPWd: 1.3 cm Ao Arch Diam (Prox Trans): 2.9 cm LV mcdonough. diameter/BSA (cm/m^2): 1.8 LV sys. diameter/BSA (cm/m^2): 1.3 FS: 26.8 % LA A2 area: 33.0 cm2 RA long axis: 6.2 cm LA A4 area: 31.4 cm2 RA area: 24.6 cm2 LA length (vol): 7.2 cm RA vol: 83.5 ml LA vol: 122.4 ml RA : 31.2 ml/m2 LA vol index: 45.7 ml/m2 RVD1 (basal): 4.2 cm IVC diam: 1.6 cm RVD2 (mid): 3.5 cm TAPSE: 2.3 cm Doppler Measurements & Calculations Ao V2 max: 135.0 cm/sec LVOT Max Miquel: 104.2 cm/sec Ao V2 mean: 98.6 cm/sec LV V1 max P.3 mmHg Ao V2 VTI: 30.8 cm LV V1 VTI: 25.0 cm Ao max P.3 mmHg Ao mean P.2 mmHg IBLLY(I,D): 3.6 cm2 AI P1/2t: 449.3 msec BILLY(V,D): 3.4 cm2 AI dec slope: 326.2 cm/sec2 BILLY indexed to BSA (cm^2/m^2): 1.3 sev ratio: 0.81 MV E max miquel: 74.4 cm/sec MV dec time: 0.19 sec MV A max miquel: 40.2 cm/sec MR ERO: 0.30 cm2 MV E/A: 1.9 Med Peak E' Miquel: 6.4 cm/sec E/E' med: 11.6 Lat Peak E' Miquel: 10.1 cm/sec E/E' lat: 7.3 E/e' average: 9.5 PA V2 max: 129.1 cm/sec MR PISA: 4.6 cm2 PA V2 mean: 78.0 cm/sec MR flow rate: 169.3 cm3/sec PA mean P.9 mmHg MR PISA radius: 0.85 cm SV(LVOT): 110.6 ml Reading Physician:JUANIS
== END ==
LOC: ECHO 08:09
PROVIDERS: PCP Family Medicine; Referring Provider Family Medicine; Visit Provider Family Medicine
DX: I08.0 Rheumatic disorders of both mitral and aortic valves (principal); R07.9 Chest pain, unspecified
CPT/HCPCS: 93306

== ENCOUNTER → 2025-06-20 13:14 | Outpatient (CLI) | payer MEDICARE, BC, SELFPAY ==
--- NOTE | 2025-06-20 13:16 | DI.US.S_ITS ---
PROCEDURE: US ART LOW EXT BILAT W/BELKIS INDICATIONS: PERIPHERAL CLAUDICATION TECHNIQUE: Color and pulse Doppler interrogation was performed of both lower extremity arterial systems, with image documentation. COMPARISON: None. FINDINGS: Right lower extremity: Common femoral artery: 95 cm/sec, with triphasic flow. Deep femoral artery: 303 cm/sec, with triphasic flow. Proximal superficial femoral artery: 94 cm/sec, with triphasic flow. Mid superficial femoral artery: 78 cm/sec, with triphasic flow. Distal superficial femoral artery: 89 cm/sec, with triphasic flow. Popliteal artery: 65 cm/sec, with triphasic flow. Posterior tibial artery: 92 cm/sec, with triphasic flow. Anterior tibial artery/dorsalis pedis: 10 cm/sec, with monophasic flow. Beatty-scale imaging description: Mild scattered plaque. Left lower extremity: Common femoral artery: 131 cm/sec, with triphasic flow. Deep femoral artery: 81 cm/sec, with triphasic flow. Proximal superficial femoral artery: 97 cm/sec, with triphasic flow. Mid superficial femoral artery: 112 cm/sec, with triphasic flow. Distal superficial femoral artery: 97 cm/sec, with tract flow. Popliteal artery: 100 cm/sec, with triphasic flow. Posterior tibial artery: 153 cm/sec, with triphasic flow. Anterior tibial artery/dorsalis pedis: 12 cm/sec, with triphasic flow. Beatty-scale imaging description: Mild scattered plaque. IMPRESSION: No hemodynamically significant lower extremity peripheral arterial stenosis. Dictated by: Mauro MCNULTY Interpreted: Stuart Merritt MD on 06/20/2025 at 15:01 Transcribed by: MAYA on 06/20/2025 at 15:11 Approved by: Stuart Merritt M.D. on 06/21/2025 at 9:37
== END ==
PROVIDERS: PCP Family Medicine; Referring Provider Family Medicine; Visit Provider Family Medicine
DX: I73.9 Peripheral vascular disease, unspecified (principal)
CPT/HCPCS: 93922; 93925